=== PATIENT | female | born 1980 | race Caucasian/White ===

== ENCOUNTER 2017-11-24 07:29 | Emergency (ER) | payer SELFPAY ==
--- NOTE | 2017-11-24 08:12 | EDPHYS ---
Physician Documentation [facility] Name: Jose Rand Age: 37 yrs Sex: Female : 1980 Arrival Date: 11/24/2017 Time: 07:31 Bed 19 Private MD: ED Physician Bull Zarate HPI: 11/24 08:05 This 37 yrs old Female presents to ER via Ambulatory with complaints of nga Abdominal Problem. 08:05 The patient presents with abdominal pain in the lower abdomen. Onset: The nga symptoms/episode began/occurred 2 day(s) ago. The patient presents with pelvic pain, that is located in/on the suprapubic area, right lower quadrant and left lower quadrant. Onset: The symptoms/episode began/occurred 2 day(s) ago. Modifying factors: The symptoms are alleviated by remaining still, the symptoms are aggravated by sexual intercourse. Associated signs and symptoms: The patient has no apparent associated signs or symptoms. Severity of symptoms: At their worst the symptoms were mild, in the emergency department the symptoms are unchanged. 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 - Social history:: Smoking status: Patient uses tobacco products, smokes one pack cigarettes per day. - Family history:: not pertinent. ROS: 08:05 Constitutional: Negative for fever, chills, and weight loss, Eyes: Negative for injury, nga pain, redness, and discharge, ENT: Negative for injury, pain, and discharge, Neck: Negative for injury, pain, and swelling, Cardiovascular: Negative for chest pain, palpitations, and edema, Respiratory: Negative for shortness of breath, cough, wheezing, and pleuritic chest pain, Back: Negative for injury and pain, : Negative for injury, bleeding, discharge, and swelling, MS/Extremity: Negative for injury and deformity, Skin: Negative for injury, rash, and discoloration, Neuro: Negative for headache, weakness, numbness, tingling, and seizure, Psych: Negative for depression, anxiety, suicide ideation, homicidal ideation, and hallucinations, Allergy/Immunology: Negative for hives, rash, and allergies, Endocrine: Negative for neck swelling, polydipsia, polyuria, polyphagia, and marked weight changes, Hematologic/Lymphatic: Negative for swollen nodes, abnormal bleeding, and unusual bruising. 08:05 Abdomen/GI: Positive for abdominal pain, of the suprapubic area, at base of incision, suture location. Exam: 08:05 Constitutional: This is a well developed, well nourished patient who is awake, alert, nga and in no acute distress. Head/Face: Normocephalic, atraumatic. Eyes: Pupils equal round and reactive to light, extra-ocular motions intact. Lids and lashes normal. Conjunctiva and sclera are non-icteric and not injected. Cornea within normal limits. Periorbital areas with no swelling, redness, or edema. ENT: Nares patent. No nasal discharge, no septal abnormalities noted. Tympanic membranes are normal and external auditory canals are clear. Oropharynx with no redness, swelling, or masses, exudates, or evidence of obstruction, uvula midline. Mucous membranes moist. Neck: Trachea midline, no thyromegaly or masses palpated, and no cervical lymphadenopathy. Supple, full range of motion without nuchal rigidity, or vertebral point tenderness. No Meningismus. Chest/axilla: Normal chest wall appearance and motion. Nontender with no deformity. No lesions are appreciated. Cardiovascular: Regular rate and rhythm with a normal S1 and S2. No gallops, murmurs, or rubs. Normal PMI, no JVD. No pulse deficits. Respiratory: Lungs have equal breath sounds bilaterally, clear to auscultation and percussion. No rales, rhonchi or wheezes noted. No increased work of breathing, no retractions or nasal flaring. Back: No spinal tenderness. No costovertebral tenderness. Full range of motion. Female : Normal external genitalia. Skin: Warm, dry with normal turgor. Normal color with no rashes, no lesions, and no evidence of cellulitis. MS/ Extremity: Pulses equal, no cyanosis. Neurovascular intact. Full, normal range of motion. Neuro: Awake and alert, GCS 15, oriented to person, place, time, and situation. Cranial nerves II-XII grossly intact. Motor strength 5/5 in all extremities. Sensory grossly intact. Cerebellar exam normal. Normal gait. Psych: Awake, alert, with orientation to person, place and time. Behavior, mood, and affect are within normal limits. 08:05 Abdomen/GI: Inspection: abdomen appears normal, Bowel sounds: normal, Palpation: nontender, Liver: no appreciated palpable abnormalities, Hernia: not appreciated. Vital Signs: 07:41 BP 133 / 94; Pulse 91; Resp 14; Temp 97.0; Pulse Ox 98% ; Weight 44.91 kg; Height 5 ft. ph 3 in. (160.02 cm); 07:41 Body Mass Index 17.54 (44.91 kg, 160.02 cm) ph MDM: 07:42 Patient medically screened. [facility] 08:05 Data reviewed: vital signs, nurses notes, lab test result(s), urinalysis, UPT: negative.[facility] 11/24 07:51 Order name: Urine Dipstick--Ancillary (enter results) bd Administered Medications: No medications were administered Disposition: 11/24/17 08:11 Discharged to Home. Impression: Dyspareunia. - Condition is Stable. - Discharge Instructions: Dyspareunia. - Prescriptions for Bentyl 20 mg Oral Tablet - take 1 tablet by ORAL route every 6 hours As needed; 20 tablet. Protonix 40 mg Oral Tablet - take 1 tablet by ORAL route once daily; 30 tablet. - Medication Reconciliation Form, Thank You Letter, Antibiotic Education, Prescription Opioid Use form. - Follow up: Private Physician; When: 2 - 3 days; Reason: Recheck today's complaints, Continuance of care, Re-evaluation by your physician. Follow up: Althea Bird MD; When: 2 - 3 days; Reason: Recheck today's complaints, Re-evaluation by your physician. - Problem is new. - Symptoms have improved. Signatures: Dispatcher [employer] Kiah Singh, ANKUR RN Bull Oleary MD MD cha Hall, Patricia RN RN ph Corrections: (The following items were deleted from the chart) 08:24 08:11 11/24/2017 08:11 Discharged to Home. Impression: Dyspareunia. Condition is ch Stable. Forms are Medication Reconciliation Form, Thank You Letter, Antibiotic Education, Prescription Opioid Use. Follow up: Private Physician; When: 2 - 3 days; Reason: Recheck today's complaints, Continuance of care, Re-evaluation by your physician. Follow up: Althea Bird; When: 2 - 3 days; Reason: Recheck today's complaints, Re-evaluation by your physician. Problem is new. Symptoms have improved. nga
--- NOTE | 2017-11-24 08:12 | ER ---
Nurse's Notes [facility] Name: Jose Rand Age: 37 yrs Sex: Female : 1980 Arrival Date: 11/24/2017 Time: 07:31 Bed 19 Private MD: Diagnosis: Dyspareunia Presentation: 11/24 07:37 Presenting complaint: Patient states: " I had stomach surgery 1 year ago and I've been ph noticing this weird bump under my scar. It hurts mainly when I have sex." Small nodule palpated in pt's lower abdomen near surgical site. Denies fever or other symptoms. Transition of care: patient was not received from another setting of care. Onset of symptoms was November 24, 2017. Initial Sepsis Screen: Does the patient meet any 2 criteria? No. Patient's initial sepsis screen is negative. Does the patient have a suspected source of infection? No. Patient's initial sepsis screen is negative. Care prior to arrival: None. 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 - Social history:: Smoking status: Patient uses tobacco products, smokes one pack cigarettes per day. - Family history:: not pertinent. Screenin:54 Abuse screen: Denies threats or abuse. Denies injuries from another. Nutritional ch screening: No deficits noted. Tuberculosis screening: No symptoms or risk factors identified. Fall Risk None identified. Assessment: 07:54 General: Appears in no apparent distress. comfortable, Behavior is calm, cooperative, ch appropriate for age. Pain: Complains of pain in abdomen Pain currently is 0 out of 10 on a pain scale. at worst was 6 out of 10 on a pain scale. Pain began gradually. Neuro: Level of Consciousness is awake, alert, obeys commands, Oriented to person, place, time, situation, Publication Director are equal bilaterally Moves all extremities. Full function Gait is steady, Speech is normal, Facial symmetry appears normal, Facial symmetry: tongue is midline, Pupils are PERRLA. Respiratory: Airway is patent Respiratory effort is even, unlabored, Breath sounds are clear bilaterally. GI: Bowel sounds present X 4 quads. Abd is soft and non tender X 4 quads. pt has small nodule under scar on abdominal wall, firm. pt states it hurts with intercourse. : No signs and/or symptoms were reported regarding the genitourinary system. Derm: Skin is pink, warm \\T\\ dry. Vital Signs: 07:41 BP 133 / 94; Pulse 91; Resp 14; Temp 97.0; Pulse Ox 98% ; Weight 44.91 kg; Height 5 ft. ph 3 in. (160.02 cm); 07:41 Body Mass Index 17.54 (44.91 kg, 160.02 cm) ph ED Course: 07:31 Patient arrived in ED. as 07:40 Triage completed. ph 07:41 Arm band placed on. ph 07:42 Bull Zarate MD is Attending Physician. [facility] [place] 07:54 Kiah Capellan, ANKUR is Primary Nurse. 07:54 No apparent distress. Resting quietly. ch 07:54 Patient has correct armband on for positive identification. Bed in low position. Call light in reach. Side rails up X 1. Adult w/ patient. Warm blanket given. 07:54 No provider procedures requiring assistance completed. ch 08:10 Althea Bird MD is Referral Physician. nga 08:24 Patient did not have IV access during this emergency room visit. Administered Medications: No medications were administered Outcome: 08:11 Discharge ordered by . [facility] [place] 08:23 Discharged to home ambulatory, with family. 08:23 Condition: improved 08:23 Discharge instructions given to patient, family, Instructed on discharge instructions, follow up and referral plans. medication usage, Demonstrated understanding of instructions, follow-up care, medications, Prescriptions given X 2. 08:24 Patient left the ED. Signatures: Kiah Capellan, RN RN Bull Oleary MD MD cha Martinez, Amelia as Hall, Patricia, RN RN
[2017-11-24 08:28] VITALS: BP 133/94; TEMP 97; O2SAT 98
[2017-11-24 09:48] LABS: Urine Blood TRACE (NEG); Urine Glucose NEGATIVE (NEG); Urine Protein NEGATIVE (NEG); Urine Specific Gravity 1.015 (1.005-1.030)
== END 2017-11-24 08:24 | disposition home or self-care (01) ==
LOC: ER 07:29
DX: N94.10 Unspecified dyspareunia (principal); I25.2 Old myocardial infarction; F17.210 Nicotine dependence, cigarettes, uncomplicated
CPT/HCPCS: 81003; 99282

== ENCOUNTER 2021-08-22 19:08 | Emergency (ER) | payer OTHER, SELFPAY ==
--- OUTSIDE RECORDS SUMMARY | 2021-08-22 19:12 | XMS REPORT | Continuity of Care Document ---
:[address] [facility] t Address [address] [place] [address] Care Team Providers Name Role Phone PCP, DOES NOT HAVE A Primary Care Physician Unavailable Anthony CLINE Attending Clinician TONYA R Attending Clinician Unavailable Afua ARZOLA, S Attending Clinician Tonya RODRIGUES R Attending Clinician Singer WILEY Attending Clinician TONYA R Admitting Clinician Unavailable Tonya RODRIGUES R Admitting Clinician Payers Payer Name Policy Type Policy Number Effective Date Expiration Date S [place] MEDICAID PENDING PENDING 2021 2021 00:00:00 00:00:00 Problems Condition Condition Condition Status Onset Resolution Last Treating Co mments Source Name Details Category Date Date Treatment Clinician Date Oral Oral Disease Active Univers abscess abscess 08-05 ity of 00:00: [address] No known No known Disease Unive rs active active ity of problems problems [facility] Allergies, Adverse Reactions, Alerts Allergy Allergy Status Severity Reaction(s) Onset Inactive Treating Comm ents Source Name Type Date Date Clinician NO KNOWN Drug Active Univers ALLERGIE Class ity of S [facility] Social History Social Habit Start Date Stop Date Quantity Comments Source Exposure to Not sure University SARS-CoV-2 (event) [facility] Alcohol intake 2021-08-04 2021-08-04 Current University 00:00:00 00:00:00 non-drinker of [facility] alcohol Branch (finding) Cigarettes smoked 2015-07-26 2015-07-26 Univers ity of current (pack per 00:00:00 00:00:00 [facility] ) - Reported Branch Cigarette 2015-07-26 2015-07-26 University of pack-years 00:00:00 00:00:00 [facility] Tobacco use and 2015-07-26 2015-07-26 Never used Universit y of exposure 00:00:00 00:00:00 [facility] Sex [birth year] At [birth year] Universit y of 00:00:00 00:00:00 [facility] Smoking Status Start Date Stop Date Source Current every day smoker 2015-07-26 00:00:00 Uni versity of [facility] Medications Ordered Filled Start Stop Current Ordering Indication Dosage Frequency Signature Comments Components Source Medication Medication Date Date Medication? Clinician (SIG) Name Name lactated Yes 500mL at 42 Univers ringers IV 1-24 mL/hr, 500 ity of infusion 15:15: mL, IV [place] 500 mL 00 Infusion, Medical CONTINUOUS Branch , Starting on Thu08/05/21 at 0915, Until Discontinu ed, Routine, PACU lactated 2021- No 500mL at 42 Univer s ringers IV -24 01-25 mL/hr, 500 it y of infusion 15:15: 09:37 mL, IV [place] 500 mL 00 :49 Infusion, Medical CONTINUOUS Branch , Starting on Thu08/05/21 at 0915, Until Tu08/06/21 at 0337, Routine, PACU sennosides- Yes 1{tbl} 1 tablet, Univers docusate -24 Oral, ity of sodium 15:00: DAILY, [place] (SENOKOT-S) 00 First dose Me dical 8.6-50 mg on Mon Branch per tablet 08/05/21 at 1 tablet 0900, Until Discontinu ed, Routine sennosides- 0 2022- No 1{tbl} 1 tablet, Univers docusate -05 08-25 Oral, ity of sodium 15:00: 09:37 DAILY, [place] (SENOKOT-S) 00 :49 First dose Me dical 8.6-50 mg on Mon Branch per tablet 08/05/21 at 1 tablet 0900, Until Discontinu ed, Routine chlorhexidi Yes 15mL 15 mL, Univ ers ne 08-05 Oral ity of (PERIDEX) 14:00: ([place] 0.12 % 00 Spit Out), Medical mouthwash BID, First Bran ch 15 mL dose on Thu08/05/21 at 0800, Until Discontinu ed, Routine chlorhexidi 2021- No 15mL 15 mL, Uni vers ne 08-05 Oral ity of (PERIDEX) 14:00: 09:37 ([place] 0.12 % 00 :49 Spit Out), Medical mouthwash BID, First Bran ch 15 mL dose on Thu08/05/21 at 0800, Until Discontinu ed, Routine bupivacaine 2021- No PRN, Unive rs (preserv 08-05 Starting ity of free) 0.5% 13:55: 15:32 on Thu [place] (SENSORCAIN 00 :30 08/05/21 at Ia dicmd E MP) 0.5 0755, Branch % (5 mg/mL) Until Thu injection 08/05/21 at 0932, Routine, Intra-op lidocaine No PRN, Univers 2% - 08-05 Starting ity of epinephrine 13:38: 15:32 on Thu [place] 1:100,000 00 :30 08/05/21 at [facility] livan syringe 0738, Branch Until Thu08/05/21 at 0932, Routine, Intra-op lactated Yes 1000mL at 42 Univer s ringers IV -24 mL/hr, ity of infusion 06:30: 1,000 mL, [place] 1,000 mL 00 IV Medical Infusion, Branch CONTINUOUS , Starting on Thu08/05/21 at 0030, Until Discontinu ed, Routine lactated 2021- No 1000mL at 42 Unive rs ringers IV 08-05- mL/hr, ity of infusion 06:30: 09:37 1,000 mL, [place] 1,000 mL 00 :49 IV Medical Infusion, Branch CONTINUOUS , Starting on Thu08/05/21 at 0030, Until Thu08/06/21 at 0337, Routine naloxone Yes .1mg 0.1 mg, Univer s (NARCAN) 08-05 Slow IV ity of injection 06:25: Push, PRN [place] 0.1 mg 21 - [facility], Starting on Thu08/05/21 at 0025, Until Discontinu ed, Routine, Sedation/R espiratory Depression , See admin instructio ns. morpHINE 2021- Yes 2mg 2 mg, Slow Un varinder injection 2 08-05 IV Push, ity of mg 06:25: 06:24 Q3HPRN, [place] 21 :21 Starting Medical on Thu08/05/21 at 0025, Until Thu08/07/21 at 0024, Routine, Pain (scale 7-10) naloxone 2021- No .1mg 0.1 mg, Unive rs (NARCAN) 08-05 Slow IV ity of injection 06:25: 09:37 Push, PRN [place] 0.1 mg 21 :49 - SEE [facility] NS, Starting on Thu08/05/21 at 0025, Until Thu08/06/21 at 0337, Routine, Sedation/R espiratory Depression , See admin instructio ns. morpHINE 2021- No 2mg 2 mg, Slow Un varinder injection 2 08-05 IV Push, ity of mg 06:25: 09:37 Q3HPRN, [place] 21 :49 Starting Medical on Thu08/05/21 at 0025, Until Thu08/06/21 at 0337, Routine, Pain (scale 7-10) HYDROcodone Yes 1{tbl} 1 tablet, Univers -acetaminop 08-05 Oral, ity of hen (NORCO 06:25: Q6HPRN, [place] 5) 5-325 mg 18 Starting Medi livan tablet 1 on Thu [place] tablet 08/05/21 at 0025, Until Discontinu ed, Routine, Pain (scale 4-6) HYDROcodone 2021- No 1{tbl} 1 tablet, Univers -acetaminop 08-05 Oral, ity of hen (NORCO 06:25: 09:37 Q6HPRN, [place] 5) 5-325 mg 18 :49 Starting Medi livan tablet 1 on Mon Branch tablet 08/05/21 at 0025, Until 08/06/21 at 0337, Routine, Pain (scale 4-6) ibuprofen 2021-0 Yes 600mg 600 mg, Univ ers (ADVIL 1-24 Oral, ity of CHILDREN'S) 06:25: Q6HPRN, [place] 100 mg/5 mL 13 Starting Medi livan oral on Mon Branch suspension 08/05/21 at 600 mg 0025, Until Discontinu ed, Routine, Pain (scale 1-3) ibuprofen 2021-0 202- No 600mg 600 mg, Uni vers (ADVIL 1-25 Oral, ity of CHILDREN'S) 06:25: 09:37 Q6HPRN, [place] 100 mg/5 mL 13 :49 Starting Medi livan oral on Mon Branch suspension 08/05/21 at 600 mg 0025, Until Thu08/06/21 at 0337, Routine, Pain (scale 1-3) ondansetron Yes 4mg 4 mg, Slow Univers (ZOFRAN 1-24 IV Push, ity of (PF)) 06:25: Q4HPRN, [place] injection 4 10 Starting Medi livan mg on Mon Branch 08/05/21 at 0025, Until Discontinu ed, Routine, Nausea and Vomiting (N/V) ondansetron 0 2021- No 4mg 4 mg, Slow Univers (ZOFRAN 1-24 -25 IV Push, ity of (PF)) 06:25: 09:37 Q4HPRN, [place] injection 4 10 :49 Starting Medi livan mg on Mon Branch 08/05/21 at 0025, Until Tu08/06/21 at 0337, Routine, Nausea and Vomiting (N/V) nicotine 2021-0 Yes 1{patch 1 Patch, Un varinder (NICODERM) 08-05 } Topical, ity o f 7 mg/24 hr 02:15: Administer [place] patch 1 00 over 24 Medical Patch Hours, Branch Q24H, First dose on 08/04/21 at 2015, Until Discontinu ed, Routine nicotine 2021-0 202- No 1{patch 1 Patch, U nivers (NICODERM) 08-05 } Topical, ity of 7 mg/24 hr 02:15: 09:37 Administer [place] patch 1 00 :49 over 24 Medical Patch Hours, Branch Q24H, First dose on 08/04/21 at 2015, Until Discontinu ed, Routine NaCl 0.9% No 1000mL at 100 Uni vers (NS) IV 08-05 mL/hr, IV ity of infusion 02:00: 06:26 Infusion, [place] 1,000 mL 00 :53 CONTINUOUS Medic al , Starting Branch on 08/04/21 at 2000, Until 08/05/21 at 0026, Routine clindamycin No 900mg 900 mg, IV Univers in 5 % 08-05 Piggyback, ity of dextrose 02:00: 01:38 ONCE, 1 [place] (CLEOCIN) 00 :00 dose, On Medica l 900 mg/50 [place] Branch mL IV 08/04/21 at piggyback 2000, RTU 900 mg Administer over 30 Minutes, 50 mL
R shanice for Anti-Infec tive: Documented Infection< br>Documen vicky Infection Site: HEENT
D uration of Therapy: Other (see Comments)< br>Restric vicky use approved by: ADC PROVIDER naproxen No 500mg 500 mg, Univ ers (NAPROSYN) 08-05 Oral, ity of tablet 500 01:30: 00:35 ONCE, 1 [place] mg 00 :00 dose, On Medical [place] Branch 08/04/21 at 1930, Routine HYDROcodone 2021- No 1{tbl} 1 tablet, Univers -acetaminop 08-05 Oral, ity of hen (NORCO 01:30: 00:35 ONCE, 1 [place] 5) 5-325 mg 00 :00 dose, On Medi livan tablet 1 [facility] tablet 08/04/21 at 1930, HARDIK iopamidol 2021- No [id number] 100mL 100 mL, Univers (ISOVUE 08-05 Intravenou ity o f 370-500 mL) 00:45: 23:25 s, ONCE, 1 [place] injection 00 :00 dose, On Medica l 100 mL Sun Branch 08/04/21 at 1845, Routine chlorhexidi 0 Yes [id number] 15mL Swish and Univers ne 0.12 % 1-24 spit out ity of mouthwash 00:00: 15 mL 2 [place] 00 (two) Medical times Branch daily. ibuprofen 0 Yes [id number] 600mg Take 1 U nivers 600 mg 1-24 tablet by ity of tablet 00:00: mouth [place] 00 every 6 Medical (six) Branch hours as needed for Pain (scale 1-3). chlorhexidi 0 Yes [id number] 15mL Swish and Univers ne 0.12 % 1-24 spit out ity of mouthwash 00:00: 15 mL 2 [place] 00 (two) Medical times Branch daily. ibuprofen 0 Yes [id number] 600mg Take 1 U nivers 600 mg 1-24 tablet by ity of tablet 00:00: mouth [place] 00 every 6 Medical (six) Branch hours as needed for Pain (scale 1-3). chlorhexidi 0 Yes [id number] 15mL Swish and Univers ne 0.12 % 1-24 spit out ity of mouthwash 00:00: 15 mL 2 [place] 00 (two) Medical times Branch daily. ibuprofen 0 Yes [id number] 600mg Take 1 U nivers 600 mg 1-24 tablet by ity of tablet 00:00: mouth [place] 00 every 6 Medical (six) Branch hours as needed for Pain (scale 1-3). HYDROcodone 2021- Yes [id number] 1{tbl} Take 1 U nivers -acetaminop 08-05 tablet by it y of hen 5-325 00:00: 05:59 mouth [place] mg tablet 00 :00 every 6 Medical (six) Branch hours as needed for Pain (scale 4-6) or Pain (scale 7-10) for up to 7 days. Indication s: acute pain amoxicillin 2021-2021- Yes [id number] 1{tbl} Take 1 Univers -clavulanat -08-13 tablet by it y of e 00:00: 05:59 mouth 2 [place] (AUGMENTIN) 00 :00 (two) Medical 875-125 mg times Branch per tablet daily for 7 days. HYDROcodone 2021- Yes [id number] 1{tbl} Take 1 U nivers -acetaminop 08-05 tablet by it y of hen 5-325 00:00: 05:59 mouth [place] mg tablet 00 :00 every 6 Medical (six) Branch hours as needed for Pain (scale 4-6) or Pain (scale 7-10) for up to 7 days. Indication s: acute pain amoxicillin 2021- Yes [id number] 1{tbl} Take 1 Univers -clavulanat 08-05 tablet by it y of e 00:00: 05:59 mouth 2 [place] (AUGMENTIN) 00 :00 (two) Medical 875-125 mg times Branch per tablet daily for 7 days. HYDROcodone 2021- Yes [id number] 1{tbl} Take 1 U nivers -acetaminop 08-05 tablet by it y of hen 5-325 00:00: 05:59 mouth [place] mg tablet 00 :00 every 6 Medical (six) Branch hours as needed for Pain (scale 4-6) or Pain (scale 7-10) for up to 7 days. Indication s: acute pain amoxicillin 2021- Yes [id number] 1{tbl} Take 1 Univers -clavulanat 08-05 tablet by it y of e 00:00: 05:59 mouth 2 [place] (AUGMENTIN) 00 :00 (two) Medical 875-125 mg times Branch per tablet daily for 7 days. clindamycin 2019-07- No 600mg 600 mg, IV Univers in 5 % 09-08- Piggyback, ity of dextrose 12:45: 12:10 ONCE, 1 [place] (CLEOCIN) 00 :00 dose, Sun Medic al 600 mg/50 07/08/ Branch mL IV at 0645, piggyback 50 RTU 600 mg mL
Reas on for Anti-Infec tive: Empiric Therapy for Suspected Infection< br>Empiric Therapy Site: Skin / Soft tissue
Duration of therapy: 72 hours
R estricted use approved by: ADC PROVIDER NaCl 0.9% 2019-07- No 500mL at 999 [facility] ers (NS) bolus 09-08 12-27 mL/hr, 500 it y of infusion 12:30: 12:20 mL, IV [place] 500 mL 00 :00 Piggyback, Medical ONCE, 1 Branch dose, 07/08/20 at 0630, STAT clindamycin 2019-07- No [id number] 300mg Take 2 Univers 150 mg 09-08 [id number] capsules ity of capsule 00:00: 05:59 by mouth 4 [place] as 00 :00 (four) Medical times Branch daily for 7 days. ondansetron 2018-0 Yes 4mg Take 1 Univ ers (ZOFRAN 5-20 tablet by ity of ODT) 4 mg 00:00: mouth [place] disintegrat 00 every 8 Medic al ing tablet (eight) Branch hours as needed for Nausea and Vomiting (N/V). traMADOL 50 2018-0 Yes 50mg Take 1 Univ ers mg tablet 5-20 tablet by ity o f 00:00: mouth [place] 00 every 6 Medical (six) Branch hours as needed for Pain (scale 7-10). ondansetron 2018-0 Yes 4mg Take 1 Univ ers (ZOFRAN 5-20 tablet by ity of ODT) 4 mg 00:00: mouth [place] disintegrat 00 every 8 Medic al ing tablet (eight) Branch hours as needed for Nausea and Vomiting (N/V). traMADOL 50 2018-0 Yes 50mg Take 1 Univ ers mg tablet 5-20 tablet by ity o f 00:00: mouth [place] 00 every 6 Medical (six) Branch hours as needed for Pain (scale 7-10). ondansetron 2018-0 Yes 4mg Take 1 Univ ers (ZOFRAN 5-20 tablet by ity of ODT) 4 mg 00:00: mouth [place] disintegrat 00 every 8 Medic al ing tablet (eight) Branch hours as needed for Nausea and Vomiting (N/V). traMADOL 50 2018-0 Yes 50mg Take 1 Univ ers mg tablet 5-20 tablet by ity o f 00:00: mouth [place] 00 every 6 Medical (six) Branch hours as needed for Pain (scale 7-10). ondansetron 2018-0 Yes 4mg Take 1 Univ ers (ZOFRAN 5-20 tablet by ity of ODT) 4 mg 00:00: mouth [place] disintegrat 00 every 8 Medic al ing tablet (eight) Branch hours as needed for Nausea and Vomiting (N/V). traMADOL 50 2018-0 Yes 50mg Take 1 Univ ers mg tablet 5-20 tablet by ity o f 00:00: mouth [place] 00 every 6 Medical (six) Branch hours as needed for Pain (scale 7-10). HYDROcodone Yes 1{tbl} Take 1-2 Univers -acetaminop 1-14 Tabs by ity o f hen (NORCO 00:00: mouth [place] 5) 5-325 mg 00 every 4 Medic al tablet (four) Branch hours as needed for Pain unrelieved by non-narcot ic analgesics . HYDROcodone 2021- No 1{tbl} Take 1-2 Univers -acetaminop 1-14 -24 Tabs by ity of hen (NORCO 00:00: 00:00 mouth [place] 5) 5-325 mg 00 :00 every 4 Medic al tablet (four) Branch hours as needed for Pain unrelieved by non-narcot ic analgesics . HYDROcodone 2021- No 1{tbl} Take 1-2 Univers -acetaminop 1-14 - Tabs by ity of hen (NORCO 00:00: 00:00 mouth [place] 5) 5-325 mg 00 :00 every 4 Medic al tablet (four) Branch hours as needed for Pain unrelieved by non-narcot ic analgesics . Vital Signs Vital Name Observation Time Observation Value Comments Source Systolic blood 2021-08-05 21:25:00 118 mm[Hg] Univer [facility] Diastolic blood 2021-08-05 21:25:00 72 mm[Hg] [facility] Heart rate 2021-08-05 21:25:00 93 /min [facility] Body temperature 2021-08-05 21:25:00 36.11 Bharati [facility] Oxygen saturation in 2021-08-05 21:25:00 98 /min [facility] Arterial blood by [facility] Pulse oximetry Branch Respiratory rate 2021-08-05 15:11:00 11 /min [facility] Body height 2021-08-05 05:31:[address] [facility] Body weight 2021-08-05 05:31:[address] [facility] BMI 2021-08-05 05:31:00 18.29 kg/m2 [facility] [place] [facility] Systolic blood 2021-08-05 14:30:00 135 mm[Hg] Univer sity of pressure [place] [facility] Diastolic blood 2021-08-05 14:30:00 107 mm[Hg] Unive rsity of pressure [place] [facility] Heart rate 2021-08-05 14:30:00 103 /min [facility] [place] [facility] Respiratory rate 2021-08-05 14:30:00 16 /min Univ ersity [facility] [place] [facility] Oxygen saturation in 2021-08-05 14:30:00 100 /min University of Arterial blood by [facility] livan Pulse oximetry Branch Body temperature 2021-08-05 14:05:00 36.17 Bharati Univ ersity of [place] [facility] Body height 2021-08-05 05:31:00 157.5 cm [facility] [place] [facility] [place] Body weight 2021-08-05 05:31:00 45.36 kg [facility] [place] [facility] BMI 2021-08-05 05:31:00 18.29 kg/m2 [facility] [place] [facility] Systolic blood 2020-07-08 12:00:00 161 mm[Hg] Univer sity of pressure [place] [facility] Diastolic blood 2020-07-08 12:00:00 103 mm[Hg] Unive rsity of pressure [place] [facility] Heart rate 2020-07-08 12:00:00 105 /min [facility] [place] [facility] Respiratory rate 2020-07-08 12:00:00 22 /min Univ ersity [facility] [place] [facility] Oxygen saturation in 2020-07-08 11:30:00 98 /min University of Arterial blood by [facility] livan Pulse oximetry Branch Body temperature 2020-07-08 10:11:30 36.78 Bharati [facility] [place] [facility] Body height 2020-07-08 10:10:00 157.5 cm [facility] [place] [facility] Body weight 2020-07-08 10:10:00 44.453 kg [facility] [place] [facility] BMI 2020-07-08 10:10:00 17.92 kg/m2 [facility] [place] [facility] Procedures Procedure Date / Time Performing Clinician Source Performed ASPIRATE OR ABSCESS 2021-08-05 13:47:00 [facility] CULTURE(AEROBIC/ANAEROBIC Medica l Branch ) AFB CULTURE 2021-08-05 13:47:00 Antione Castaneda [facility] ASPIRATE OR ABSCESS 2021-08-05 13:47:00 Antione Castaneda [facility] CULTURE(AEROBIC/ANAEROBIC Medica l Branch ) INCISION AND DRAINAGE 2021-08-05 13:14:00 Antione Castaneda [facility] ORAL CAVITY [facility] TOOTH EXTRACTION 2021-08-05 13:14:[address] [facility] PROTHROMBIN TIME / INR 2021-08-05 10:17:00 [facility] [place] [facility] ACTIVATED PARTIAL 2021-08-05 10:17:00 [facility] PROTHROMBIN TIME / INR 2021-08-05 10:17:00 [facility] [place] [facility] ACTIVATED PARTIAL 2021-08-05 10:17:00 [facility] XR ORTHOPANTOGRAM TEETH 2021-08-05 07:25:00 [facility] XR ORTHOPANTOGRAM TEETH 2021-08-05 07:25:00 [facility] COMP. METABOLIC PANEL 2021-08-05 01:00:00 Rohini Caal [facility] ([id number]) Medical Branch CBC WITH DIFF 2021-08-05 01:00:00 [facility] COMP. METABOLIC PANEL 2021-08-05 01:00:00 Rohini Caal [facility] ([id number]) Medical Branch CBC WITH DIFF 2021-08-05 01:00:00 [facility] LAB ONLY COVID 2021-08-05 00:41:00 Rohini Caal [facility] COVID-19 (ID NOW RAPID 2021-08-05 00:41:00 Rohini Caal [facility] TESTING) Medical Branch LAB ONLY COVID 2021-08-05 00:41:00 Rohini Caal [facility] INTERPRETATION Medical Branch COVID-19 (ID NOW RAPID 2021-08-05 00:41:00 Rohini Caal [facility] TESTING) Medical Branch CT MAXILLOFACIAL/MANDIBLE 2021-08-04 23:32:08 [facility] MAXILLOFACIAL/MANDIBLE 2021-08-04 23:32:08 [facility] [place] [facility] NOTICE OF PRIVACY 2021-08-04 18:44:27 Doctor Unassigned, [facility] [place] [facility] [place] NOTICE OF PRIVACY 2021-08-04 18:44:27 Doctor Unassigned, [facility] [place] [facility] [place] CONSENT/REFUSAL FOR 2021-08-04 18:44:14 [facility] DIAGNOSIS AND TREATMENT [place] [facility] [place] CONSENT/REFUSAL FOR 2021-08-04 18:44:14 [facility] DIAGNOSIS AND TREATMENT [place] [facility] [place] HOSPITAL ADMISSION 2021-08-04 06:01:00 [facility] Name Medical [place] COMP. METABOLIC PANEL 2020-07-08 10:36:00 [facility] ([id number]) Medical [place] CBC WITH DIFF 2020-07-08 10:36:00 [facility] En[facility] Start End Encounter Admission Attending Care Care Encounter Source Date/Time Date/Time Type Type Clinicians Facility Department ID 2021-08-06 2021-08-06 Transition JULI Cruz [id number] Univers 00:00:00 00:00:00 of Care Loreta SMITH [id number] ity of [place]2.686 [place] [id number] [place] [id number] Branch 2021-08-04 2021-08-05 Inpatient X [facility] [id number] Univers 12:52:00 18:40:00 ANTIONE [facility] Medical [place] 2021-08-04 2021-08-05 Hospital Rohini Caal [id number] Univers 12:52:00 18:40:00 Encounter Antione Castaneda [id number]. 10 ity [facility] 4.2.7.2.686 [place] [id number] [facility] 091 [place] 2021-08-05 2021-08-05 Surgery LUC Castaneda [id number] Univers 07:15:00 08:36:00 Antione MALCOLM [id number] it [facility] [id number] [place] [id number] [facility] 103 Branch 2020-07-08 2020-07-08 [facility] [id number] Univers 04:13:00 06:21:00 Levon Tavares [id number] i ty [facility] 4[place].2.686 [place] [id number] [facility] 084 Branch 2020-07-08 2020-07-08 Emergency X [facility] ERT [id number] Univers 04:05:00 04:05:00 [facility] Results Test Description Test Time Test Comments Results Result Comments Source aPTT 2021-08-05 10:36:53 Test Item Value Reference Range Interpretation Comme nts APTT Patient (test code = See_Comment [ Automated message] The system 3173-2) which generated this result transmitted ref erence range: 26 - 36 Seconds. The reference range was not used to interpret this result as camilo l/abnormal. Lab Interpretation (test code = Normal 07063-2) [facility] / [id number] 10:36:53 Test Item Value Reference Range Interpretation Comments PROTIME PATIENT (test See_Comment [Auto mated message] code = 5964-2) The system wh ich generated this result transmitted ref erence range: 10.1 - 1 2.6 Seconds. The re ference range was not u sed to interpret this result as normal/abnor mal. INR (test code = 6301-6) Nor mal INR <1.1; Warfarin Therap eutic range 2.0 to 3. 0 or 2.5 to 3.5, dep ending upon the indica tions. Lab Interpretation (test Normal code = 98889-9) [facility] 10:36:53 Test Item Value Reference Range Interpretation Comments APTT Patient (test code = See_Comment [ Automated message] 3173-2) The system whic h generated this result transmitted ref erence range: 26 - 36 Seconds. The re ference range was not u sed to interpret this result as normal/abnor mal. Lab Interpretation (test Normal code = 58028-4) [facility] Time / [id number] 10:36:53 Test Item Value Reference Range Interpretation Comments PROTIME PATIENT (test See_Comment [Auto mated message] code = 5964-2) The system wh ich generated this result transmitted ref erence range: 10.1 - 1 2.6 Seconds. The re ference range was not u sed to interpret this result as normal/abnor mal. INR (test code = 6301-6) Nor mal INR <1.1; Warfarin Therap eutic range 2.0 to 3. 0 or 2.5 to 3.5, dep ending upon the indica tions. Lab Interpretation (test Normal code = 86160-3) [facility] WITH [id number] 01:37:50 Test Item Value Reference Range Interpretation Comments WBC (test code = See_Comment H [Automated 5890-2) message] The system which generated this result transmit vicky reference range : 4.30 - 11.10 10*3/?L. The reference range was not used to interpret this result as normal/abnormal . RBC (test code = See_Comment [Automated 419-8) message] The system which generated this result transmit vicky reference range : 3.93 - 5.25 10*6/?L. The reference range was not used to interpret this result as normal/abnormal . HGB (test code = 12.9 g/dL 11.6-15.0 718-7) HCT (test code = 38.5 % 35.7-45.2 4544-3) MCV (test code = 86.3 fL 80.6-95.5 787-2) MCH (test code = 28.9 pg 25.9-32.8 785-6) MCHC (test code = 33.5 g/dL 31.6-35.1 786-4) RDW-SD (test code = 41.1 fL 39.0-49.9 92291-2) RDW-CV (test code = 13.1 % 12.0-15.5 788-0) PLT (test code = See_Comment [Automated 777-3) message] The system which generated this result transmit vicky reference range : 166 - 358 10*3/ ?L. The reference range was not u sed to interpret th is result as normal/abnormal . MPV (test code = 9.7 fL 9.5-12.9 83396-3) NRBC/100 WBC (test See_Comment [Automat ed code = 4842888510) message] The system which generated this result transmit vicky reference range : 0.0 - 10.0 /100 WBCs. The reference range was not used to interpret this result as normal/abnormal . NRBC x10^3 (test code <0.01 See_Comment [Auto mated = 3774822322) message] The system which generated this result transmit vicky reference range : 10*3/?L. The reference range was not used to interpret this result as normal/abnormal . GRAN MAT (NEUT) % 80.0 % (test code = 770-8) IMM GRAN % (test code 0.60 % = 4069868140) LYMPH % (test code = 10.6 % 736-9) MONO % (test code = 7.6 % 5905-5) EOS % (test code = 0.6 % 713-8) BASO % (test code = 0.6 % 706-2) GRAN MAT x10^3(ANC) 16.21 10*3/uL 1.88-7.09 H (test code = 0931323219) IMM GRAN x10^3 (test 0.13 10*3/uL 0.00-0.06 H code = 7433475669) LYMPH x10^3 (test code 2.16 10*3/uL 1.32-3.29 = 731-0) MONO x10^3 (test code 1.54 10*3/uL 0.33-0.92 H = 742-7) EOS x10^3 (test code = 0.13 10*3/uL 0.03-0.39 711-2) BASO x10^3 (test code 0.12 10*3/uL 0.01-0.07 H = 704-7) PLT ESTIMATE (test Normal Normal code = 9317-9) GIANT PLATELETS (test Present See_Comment A [Auto mated code = 5908-9) message] The system which generated this result transmit vicky reference range : (none). The reference range was not used to interpret this result as normal/abnormal . Lab Interpretation Abnormal (test code = 13333-2) [facility] WITH [id number] 01:37:50 Test Item Value Reference Range Interpretation Comments WBC (test code = See_Comment H [Automated 2590-2) message] The system which generated this result transmit vicky reference range : 4.30 - 11.10 10*3/?L. The reference range was not used to interpret this result as normal/abnormal . RBC (test code = See_Comment [Automated 789-8) message] The system which generated this result transmit vicky reference range : 3.93 - 5.25 10*6/?L. The reference range was not used to interpret this result as normal/abnormal . HGB (test code = 12.9 g/dL 11.6-15.0 718-7) HCT (test code = 38.5 % 35.7-45.2 4544-3) MCV (test code = 86.3 fL 80.6-95.5 787-2) MCH (test code = 28.9 pg 25.9-32.8 785-6) MCHC (test code = 33.5 g/dL 31.6-35.1 786-4) RDW-SD (test code = 41.1 fL 39.0-49.9 06279-0) RDW-CV (test code = 13.1 % 12.0-15.5 788-0) PLT (test code = See_Comment [Automated 777-3) message] The system which generated this result transmit vicky reference range : 166 - 358 10*3/ ?L. The reference range was not u sed to interpret th is result as normal/abnormal . MPV (test code = 9.7 fL 9.5-12.9 67601-4) NRBC/100 WBC (test See_Comment [Automat ed code = 8649390512) message] The system which generated this result transmit vicky reference range : 0.0 - 10.0 /100 WBCs. The reference range was not used to interpret this result as normal/abnormal . NRBC x10^3 (test code <0.01 See_Comment [Auto mated = 7665657114) message] The system which generated this result transmit vicky reference range : 10*3/?L. The reference range was not used to interpret this result as normal/abnormal . GRAN MAT (NEUT) % 80.0 % (test code = 770-8) IMM GRAN % (test code 0.60 % = 2007004187) LYMPH % (test code = 10.6 % 736-9) MONO % (test code = 7.6 % 5905-5) EOS % (test code = 0.6 % 713-8) BASO % (test code = 0.6 % 706-2) GRAN MAT x10^3(ANC) 16.21 10*3/uL 1.88-7.09 H (test code = 4876576020) IMM GRAN x10^3 (test 0.13 10*3/uL 0.00-0.06 H code = 2139238192) LYMPH x10^3 (test code 2.16 10*3/uL 1.32-3.29 = 731-0) MONO x10^3 (test code 1.54 10*3/uL 0.33-0.92 H = 742-7) EOS x10^3 (test code = 0.13 10*3/uL 0.03-0.39 711-2) BASO x10^3 (test code 0.12 10*3/uL 0.01-0.07 H = 704-7) PLT ESTIMATE (test Normal Normal code = 9317-9) GIANT PLATELETS (test Present See_Comment A [Auto mated code = 5908-9) message] The system which generated this result transmit vicky reference range : (none). The reference range was not used to interpret this result as normal/abnormal . Lab Interpretation Abnormal (test code = 89679-9) [facility]. METABOLIC PANEL ([id number])2021-08-05 01:23:23 Test Item Value Reference Range Interpretation Comments NA (test code = 131 mmol/L 135-145 L 1543179889) K (test code = 3.8 mmol/L 3.5-5.0 7973339561) CL (test code = 103 mmol/L 98-108 1921899223) CO2 TOTAL (test code = 23 mmol/L 23-31 1071171420) AGAP (test code = 2-16 1614734112) BUN (test code = 15 mg/dL 7-23 2828611502) GLUCOSE (test code = 109 mg/dL 70-110 9223920421) CREATININE (test code = 0.46 mg/dL 0.50-1.04 L 9473726147) TOTAL BILI (test code = 0.4 mg/dL 0.1-1.4 7801562866) CALCIUM (test code = 8.3 mg/dL 8.6-10.6 L 6267417234) T PROTEIN (test code = 7.7 g/dL 6.3-8.2 3180364743) ALBUMIN (test code = 4.2 g/dL 3.5-5.0 0872552545) ALK PHOS (test code = 89 U/L 34-122 3895110948) ALTv (test code = 15 U/L 5-35 1742-6) AST(SGOT) (test code = 32 U/L 13-40 2612879994) eGFR (test code = mL/min/1.73m2 7881686799) GERALDO (test code = GERALDO) Association of Glomerular Filtration Rate (GFR) and Staging of Kidney Disease* + --+ --+ ------+| GFR (mL/min/1.73 m2) ?| With Kidney Damage ?| ?Without Kidney Damage+ --------+ --------+ +| ?>90 ?| ?Stage one ?| ? Normal ?+ ---+ ---+ -------+| ?60-89 ?| ?Stage two ?| ? Decreased GFR ? + --+ --+ ------+| ?30-59 ?| ?Stage three ?| ? Stage three ? + --+ --+ ------+| ?15-29 ?| ?Stage four ? | ? Stage four ?+ ---+ ---+ -------+| ?<15 (or dialysis) ? ?| ?Stage five ? | ? Stage five ?+ ---+ ---+ -------+ *Each stage assumes the associated GFR level has been in effect for at least three months. ?Stages 1 to 5, with or without kidney disease, indicate chronic kidney disease. Notes: Determination of stages one and two (with eGFR >59mL/min/1.73 m2) requires estimation of kidney damage for at least three months as defined by structural or functional abnormalities of the kidney, manifested by either:Pathological abnormalities or Markers of kidney damage (including abnormalities in the composition of the blood or urine or abnormalities in imaging tests). Lab Interpretation Abnormal (test code = 24247-6) [facility]. METABOLIC PANEL ([id number])2021-08-05 01:23:23 Test Item Value Reference Range Interpretation Comments NA (test code = 131 mmol/L 135-145 L 4386430750) K (test code = 3.8 mmol/L 3.5-5.0 9767405615) CL (test code = 103 mmol/L 98-108 2177177554) CO2 TOTAL (test code = 23 mmol/L 23-31 2931082502) AGAP (test code = 2-16 8523269550) BUN (test code = 15 mg/dL 7-23 2282182783) GLUCOSE (test code = 109 mg/dL 70-110 1960845745) CREATININE (test code = 0.46 mg/dL 0.50-1.04 L 7840119977) TOTAL BILI (test code = 0.4 mg/dL 0.1-1.8 0876847936) CALCIUM (test code = 8.3 mg/dL 8.6-10.6 L 8888085568) T PROTEIN (test code = 7.7 g/dL 6.3-8.2 0425608945) ALBUMIN (test code = 4.2 g/dL 3.5-5.0 4528920857) ALK PHOS (test code = 89 U/L 34-122 3068313339) ALTv (test code = 15 U/L 5-35 1742-6) AST(SGOT) (test code = 32 U/L 13-40 3362348274) eGFR (test code = mL/min/1.73m2 8476991096) GERALDO (test code = GERALDO) Association of Glomerular Filtration Rate (GFR) and Staging of Kidney Disease* + --+ --+ ------+| GFR (mL/min/1.73 m2) ?| With Kidney Damage ?| ?Without Kidney Damage+ --------+ --------+ +| ?>90 ?| ?Stage one ?| ? Normal ?+ ---+ ---+ -------+| ?60-89 ?| ?Stage two ?| ? Decreased GFR ? + --+ --+ ------+| ?30-59 ?| ?Stage three ?| ? Stage three ? + --+ --+ ------+| ?15-29 ?| ?Stage four ? | ? Stage four ?+ ---+ ---+ -------+| ?<15 (or dialysis) ? ?| ?Stage five ? | ? Stage five ?+ ---+ ---+ -------+ *Each stage assumes the associated GFR level has been in effect for at least three months. ?Stages 1 to 5, with or without kidney disease, indicate chronic kidney disease. Notes: Determination of stages one and two (with eGFR >59mL/min/1.73 m2) requires estimation of kidney damage for at least three months as defined by structural or functional abnormalities of the kidney, manifested by either:Pathological abnormalities or Markers of kidney damage (including abnormalities in the composition of the blood or urine or abnormalities in imaging tests). Lab Interpretation Abnormal (test code = 02974-3) [facility] WITH [id number] 11:23:00 Test Item Value Reference Range Interpretation Comments WBC (test code = See_Comment H [Automated 5727-2) message] The system which generated this result transmit vicky reference range : 4.30 - 11.10 10*3/?L. The reference range was not used to interpret this result as normal/abnormal . RBC (test code = See_Comment L [Automated 389-8) message] The system which generated this result transmit vicky reference range : 3.93 - 5.25 10*6/?L. The reference range was not used to interpret this result as normal/abnormal . HGB (test code = 11.9 g/dL 11.6-15 718-7) HCT (test code = 35.4 % 35.7-45.2 L 4544-3) MCV (test code = 90.3 fL 80.6-95.5 787-2) MCH (test code = 30.4 pg 25.9-32.8 785-6) MCHC (test code = 33.6 g/dL 31.6-35.1 786-4) RDW-SD (test code = 44.1 fL 39-49.9 46607-2) RDW-CV (test code = 13.2 % 12-15.5 788-0) PLT (test code = See_Comment H [Automated 777-3) message] The system which generated this result transmit vicky reference range : 166 - 358 10*3/ ?L. The reference range was not u sed to interpret th is result as normal/abnormal . MPV (test code = 9.8 fL 9.5-12.9 66630-3) NRBC/100 WBC (test See_Comment [Automat ed code = 6619171424) message] The system which generated this result transmit vicky reference range : 0.0 - 10.0 /100 WBCs. The reference range was not used to interpret this result as normal/abnormal . NRBC x10^3 (test code <0.01 See_Comment [Auto mated = 0969577970) message] The system which generated this result transmit vicky reference range : 10*3/?L. The reference range was not used to interpret this result as normal/abnormal . GRAN MAT (NEUT) % 83.5 % (test code = 770-8) IMM GRAN % (test code 0.40 % = 0185699097) LYMPH % (test code = 8.6 % 736-9) MONO % (test code = 6.5 % 5905-5) EOS % (test code = 0.5 % 713-8) BASO % (test code = 0.5 % 706-2) GRAN MAT x10^3(ANC) 14.26 10*3/uL 1.88-7.09 H (test code = 8528447951) IMM GRAN x10^3 (test 0.06 10*3/uL 0-0.06 code = 5340611487) LYMPH x10^3 (test code 1.47 10*3/uL 1.32-3.29 = 731-0) MONO x10^3 (test code 1.11 10*3/uL 0.33-0.92 H = 742-7) EOS x10^3 (test code = 0.09 10*3/uL 0.03-0.39 711-2) BASO x10^3 (test code 0.09 10*3/uL 0.01-0.07 H = 704-7) Lab Interpretation Abnormal (test code = 11904-2) [facility]. METABOLIC PANEL ([id number])2020-07-08 11:10:00 Test Item Value Reference Range Interpretation Comments NA (test code = 137 mmol/L 135-145 2427670263) K (test code = 3.5 mmol/L 3.5-5 4844131654) CL (test code = 103 mmol/L 98-108 5617841082) CO2 TOTAL (test code = 25 mmol/L 23-31 2567951857) AGAP (test code = 2-16 4803334117) BUN (test code = 18 mg/dL 7-23 5062643476) GLUCOSE (test code = 95 mg/dL 70-110 3612453120) CREATININE (test code 0.52 mg/dL 0.5-1.04 = 0101149927) TOTAL BILI (test code 0.6 mg/dL 0.1-1.1 = 2156165761) CALCIUM (test code = 9.3 mg/dL 8.6-10.6 0999949287) T PROTEIN (test code = 7.6 g/dL 6.3-8.2 8641693394) ALBUMIN (test code = 4.2 g/dL 3.5-5 7769350609) ALK PHOS (test code = 77 U/L 34-122 8477936767) ALTv (test code = 13 U/L 5-35 1742-6) AST(SGOT) (test code = 27 U/L 13-40 0049888664) eGFR Calculation mL/min/1.73m2 (Non-) (test code = 1378045928) eGFR Calculation mL/min/1.73m2 () (test code = 6635436993) GERALDO (test code = GERALDO) Association of Glomerular Filtration Rate (GFR) and Staging of Kidney Disease* + -+ + ---+| GFR (mL/min/1.73 m2) ?| With Kidney Damage ?| ?Without Kidney Damage+ -------+ ------+ ---------+| ?>90 ?| ?Stage one ?| ? Normal ?+ --+ -+ ----+| ?60-89 ?| ?Stage two ?| ? Decreased GFR ? + -+ + ---+| ?30-59 ?| ?Stage three ?| ? Stage three ? + -+ + ---+| ?15-29 ?| ?Stage four ? | ? Stage four ?+ --+ -+ ----+| ?<15 (or dialysis) ? ?| ?Stage five ? | ? Stage five ?+ --+ -+ ----+ *Each stage assumes the associated GFR level has been in effect for at least three months. ?Stages 1 to 5, with or without kidney disease, indicate chronic kidney disease. Notes: Determination of stages one and two (with eGFR >59mL/min/1.73 m2) requires estimation of kidney damage for at least three months as defined by structural or functional abnormalities of the kidney, manifested by either:Pathological abnormalities or Markers of kidney damage (including abnormalities in the composition of the blood or urine or abnormalities in imaging tests). [facility]"
[2021-08-22 20:20] LABS: Urine Blood Negative (Negative); Urine Glucose Negative (Negative); Urine Protein Negative (Negative); Urine Specific Gravity >=1.030 (1.005-1.030)
[2021-08-22 20:32] LABS: Urine Specific Gravity/Preg >1.030 (1.005-1.030)
[2021-08-22] MEDS ORDERED: ONDANSETRON 4 MG/2 ML VIAL ONE ×2 (20:55→23:54)
[2021-08-22] MEDS ORDERED: MORPHINE 4 MG/ML SYR ONE ×2 (20:55→23:54)
[2021-08-22 21:05] LABS: Hematocrit 35.7 % (36.0-45.0); MPV 7.7 fL (7.6-11.3); RBC Red Blood Cell Count 4.03 M/uL (3.86-4.86)
[2021-08-22 21:47] LABS: ALT/SGPT 24 U/L (12-78); AST/SGOT 11 U/L (15-37); Albumin 3.4 g/dL (3.4-5.0); Alkaline Phosphatase 79 U/L (45-117); BUN Blood Urea Nitrogen 21 mg/dL (7-18); Bicarbonate 24 mmol/L (21-32); Bilirubin Direct < 0.1 mg/dL (0-0.2); Bilirubin Total 0.2 mg/dL (0.2-1.0); Glucose Level 89 mg/dL (74-106); Lipase 246 U/L (73-393); Protein, Total 7.3 g/dL (6.4-8.2); Sodium Level 142 mmol/L (136-145)
--- NOTE | 2021-08-22 21:55 | RAD REPORT ---
EXAM DESCRIPTION: CTAbdomen Pelvis W Contrast - 08/22/2021 9:42 pm CLINICAL HISTORY: ABD PAIN COMPARISON: CT ABD PELVIS W CONTRAST dated 10/30/2011 TECHNIQUE: CT of the abdomen and pelvis was performed. All CT scans are performed using dose optimization technique as appropriate and may include automated exposure control or mA/KV adjustment according to patient size. FINDINGS: Lower chest: No acute abnormality. Liver: Pneumobilia. Biliary: Extrahepatic biliary ductal dilatation is chronic. Stomach: No significant focal abnormality. Duodenum: No significant focal abnormality. Pancreas: No significant abnormality. Spleen: No significant abnormality. Adrenal: No suspicious lesions. Kidney/ureter: No hydronephrosis. No renal calculi. Too small to characterize and/or benign appearing renal lesions are noted. Retroperitoneum: No retroperitoneal adenopathy. Vascular: No aneurysm. Bowel: No significant focal abnormality. Peritoneum: No ascites or free air. Bladder: Grossly unremarkable. Reproductive: No adnexal masses. Bones: No acute fracture. Fusion hardware in the thoracic and lumbar spine. Other: n/a IMPRESSION: No acute intra-abdominal or pelvic finding. Pneumobilia with extrahepatic biliary duct d ilatation that is similar to prior. This could reflect the cholecystectomy state and prior sphinctero chanelle. Correlate with LFTs.
--- NOTE | 2021-08-22 23:28 | ER ---
Nurse's Notes [facility] Name: Jose Rand Age: 41 yrs Sex: Female : 1980 Arrival Date: 08/22/2021 Time: 19:12 Bed 12 Private MD: Diagnosis: Other abdominal pain Presentation: 08/22 19:23 Chief complaint: Patient states: I am having really sharp pains right under my rib cage vc1 but below my breast in the middle, it has been doing it for three days. Coronavirus screen: Vaccine status: Patient reports being unvaccinated. At this time, the client does not indicate any symptoms associated with coronavirus-19. Ebola Screen: No symptoms or risks identified at this time. Initial Sepsis Screen: Does the patient meet any 2 criteria? No. Patient's initial sepsis screen is negative. Does the patient have a suspected source of infection? No. Patient's initial sepsis screen is negative. Risk Assessment: Do you want to hurt yourself or someone else? Patient reports no desire to harm self or others. Onset of symptoms was August 19, 2021. 19:23 Method Of Arrival: Ambulatory vc1 19:23 Acuity: CRISTINA 3 vc1 Triage Assessment: 19:26 General: Appears in no apparent distress. uncomfortable, Behavior is calm, cooperative, vc1 appropriate for age. Pain: Complains of pain in epigastric area and right upper quadrant Pain does not radiate. Pain currently is 10 out of 10 on a pain scale. Quality of pain is described as sharp, Aggravated by eating. GI: Abdomen is round Bowel sounds present X 4 quads. Abdomen is tender to palpation in right upper quadrant and right lower quadrant Reports upper abdominal pain, bloating, diarrhea, epigastric pain. 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 Flu vaccine is not up to date. 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 I congratulated her on such a feat. . Screenin:39 Abuse screen: Denies threats or abuse. Denies injuries from another. Nutritional arina screening: No deficits noted. Tuberculosis screening: No symptoms or risk factors identified. Fall Risk None identified. Assessment: 20:39 Reassessment: Patient appears in no apparent distress at this time. Pt reports upper arina rt. quadrant times "a long time", but got progressively worse after ingesting a tuna sandwich today. We attempted to gain IV access, but given the difficulty, the charge nurse is using the doppler, to find access. 21:16 General: CT called to notify them that she was medicated and labs were drawn, and a arina green top at bedside. . 21:24 General: CT is here to take the pt for her exam. . arina 21:28 General: The pt is going to CT. . arina 21:55 General: The pt has returned from CT and has ambulated to the restroom. She reports arina that her abdominal pain is "minimal". . 22:17 General: The lab was called to see if they could add the troponin to the blood they arina already have. He asked that I send the label, which I did. . Vital Signs: 19:23 BP 155 / 112; Pulse 88; Resp 20; Temp 98.1(TE); Pulse Ox 100% on R/A; Weight 47.63 kg; vc1 Height 5 ft. 2 in. (157.48 cm); Pain 10/10; 21:06 BP 153 / 101; Pulse 93; Resp 16; Temp 98.5; Pulse Ox 98% on R/A; Pain 0/10; arina 21:16 BP 139 / 98; Pulse 85; Resp 16; Pulse Ox 99% on R/A; Pain 0/10; arina 22:09 BP 131 / 94; Pulse 83; Resp 16; Pulse Ox 99% on R/A; Pain 2/10; arina 08/23 00:00 BP 128 / 92; Pulse 82; Resp 16; Temp 98.5; Pulse Ox 98% on R/A; Pain 0/10; arina 08/22 19:23 Body Mass Index 19.20 (47.63 kg, 157.48 cm) vc1 ED Course: 08/22 19:12 Patient arrived in ED. ja2 19:26 Triage completed. vc1 19:26 Arm band placed on right wrist. vc1 20:06 Dario Lopez PA is PHCP. [facility] 20:06 Fidel Feng MD is Attending Physician. jmm 20:39 Kristie Edward, RN is Primary Nurse. arina 20:39 Patient has correct armband on for positive identification. Bed in low position. Call arina light in reach. 20:39 No provider procedures requiring assistance completed. arina 20:45 Initial lab(s) drawn, by me, sent to lab. Inserted saline lock: 22 gauge in left bb antecubital area, using aseptic technique. Blood collected. 20:49 Urine --Ancillary (enter results) Sent. bb 20:50 Basic Metabolic Panel Sent. bb 20:50 CBC with Diff Sent. bb 21:42 CT Abd/Pelvis - IV Contrast Only In Process Unspecified. EDMS 22:18 Troponin High Sensitivity Sent. arina 22:33 Warm blanket given. Verbal reassurance given. arina 22:33 EKG done, by ED staff, reviewed by Dario OVERTON. arina 23:27 Shahbaz Sanchez MD is Referral Physician. [facility] 08/23 00:01 intact, bleeding controlled, No redness/swelling at site. Pressure dressing applied. arina Administered Medications: 08/22 21:00 Drug: morphine 4 mg Route: IVP; Site: left antecubital; arina 21:27 Follow up: Response: Pain is decreased arina 21:00 Drug: Zofran (Ondansetron) 4 mg Route: IVP; Site: left antecubital; arina 21:28 Follow up: Response: Pain is decreased arina 23:50 Drug: morphine 4 mg Route: IVP; Site: left antecubital; arina 08/23 00:00 Follow up: Response: No adverse reaction arina 08/22 23:50 Drug: Zofran (Ondansetron) 4 mg Route: IVP; Site: left antecubital; arina 08/23 00:00 Follow up: Response: No adverse reaction arina Outcome: 08/22 20:42 Condition: stable arina 23:27 Discharge ordered by MD. jessica 08/23 00:01 Discharged to home ambulatory, with family. arina Discharge instructions given to patient. 00:21 Patient left the ED. sm5 Signatures: Dispatcher [employer] EDMS Dario Lopez PA PA jmm Ballard, Brenda, Rianna Gallo RN, Sarah, RN RN 5 Kristie Edward RN RN bo Calcote, Vanessa RN RN vc1
--- NOTE | 2021-08-22 23:28 | EDPHYS ---
Physician Documentation [facility] Name: Jose Rand Age: 41 yrs Sex: Female : 1980 Arrival Date: 08/22/2021 Time: 19:12 Bed 12 Private MD: ED Physician Fidel Feng HPI: 08/22 20:19 This 41 yrs old Female presents to ER via Ambulatory with complaints of Abdominal Pain, jmm Diarrhea. 20:19 The patient presents with abdominal pain. Onset: The symptoms/episode began/occurred jmm gradually, 4 day(s) ago. The symptoms radiate to back. Associated signs and symptoms: Pertinent positives: nausea and vomiting. The symptoms are described as achy. Modifying factors: The symptoms are alleviated by nothing, the symptoms are aggravated by nothing. The patient has experienced similar episodes in the past, several times. 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 Flu vaccine is not up to date. 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 I congratulated her on such a feat. . ROS: 20:19 Constitutional: Negative for fever, chills, and weight loss, Cardiovascular: Negative jmm for chest pain, palpitations, and edema, Respiratory: Negative for shortness of breath, cough, wheezing, and pleuritic chest pain. 20:19 Abdomen/GI: Positive for abdominal pain. 20:19 All other systems are negative. Exam: 20:19 Head/Face: atraumatic. Eyes: EOMI, no conjunctival erythema appreciated ENT: Moist jmm Mucus Membranes Neck: Trachea midline, Supple Chest/axilla: Normal chest wall appearance and motion. Cardiovascular: Regular rate and rhythm. No edema appreciated Respiratory: Normal respirations, no respiratory distress appreciated 20:19 Back: Normal ROM Skin: General appearance color normal MS/ Extremity: Moves all extremities, no obvious deformities appreciated, no edema noted to the lower extremities Neuro: Awake and alert Psych: Behavior is normal, Mood is normal, Patient is cooperative and pleasant 20:19 Constitutional: The patient appears alert, awake, uncomfortable. 20:19 Abdomen/GI: Inspection: distension, Bowel sounds: normal, Palpation: soft, mild abdominal tenderness, in the epigastric area, right upper quadrant and left upper quadrant. Vital Signs: 19:23 BP 155 / 112; Pulse 88; Resp 20; Temp 98.1(TE); Pulse Ox 100% on R/A; Weight 47.63 kg; vc1 Height 5 ft. 2 in. (157.48 cm); Pain 10/10; 21:06 BP 153 / 101; Pulse 93; Resp 16; Temp 98.5; Pulse Ox 98% on R/A; Pain 0/10; arina 21:16 BP 139 / 98; Pulse 85; Resp 16; Pulse Ox 99% on R/A; Pain 0/10; arina 22:09 BP 131 / 94; Pulse 83; Resp 16; Pulse Ox 99% on R/A; Pain 2/10; arina 0211 00:00 BP 128 / 92; Pulse 82; Resp 16; Temp 98.5; Pulse Ox 98% on R/A; Pain 0/10; arina 0210 19:23 Body Mass Index 19.20 (47.63 kg, 157.48 cm) vc1 MDM: 08/22 20:19 Patient medically screened. [facility] 23:25 Data reviewed: vital signs, nurses notes. Counseling: I had a detailed discussion with aracely the patient and/or guardian regarding: the historical points, exam findings, and any diagnostic results supporting the discharge/admit diagnosis, lab results, radiology results, the need for outpatient follow up, to return to the emergency department if symptoms worsen or persist or if there are any questions or concerns that arise at home. 08/22 20:19 Order name: Basic Metabolic Panel; Complete Time: 21:49 [facility] 08/22 20: Order name: CBC with Diff; Complete Time: 21:08 [facility] 08/22 20:19 Order name: Hepatic Function; Complete Time: 21:49 [facility] 08/22 20:19 Order name: Lipase; Complete Time: 21:49 [facility] 08/22 20:21 Order name: Urine Dipstick-Ancillary; Complete Time: 20:23 [facility] 08/22 20:22 Order name: Urine --Ancillary (enter results) 2 08/22 20:20 Order name: CT Abd/Pelvis - IV Contrast Only; Complete Time: 21:58 [facility] 08/22 20:22 Order name: Urine --Ancillary; Complete Time: 20:34 [facility] 08/22 22:10 Order name: Troponin High Sensitivity; Complete Time: 23:23 [facility] 08/22 23:15 Order name: CREATININE WHOLE BLOOD; Complete Time: 23:23 [facility] 08/22 20:19 Order name: IV Saline Lock; Complete Time: 20:49 [facility] 08/22 20:19 Order name: Labs collected and sent; Complete Time: 20:49 [facility] 08/22 20:19 Order name: Urine Dipstick-Ancillary (obtain specimen); Complete Time: 20:21 [facility] 08/22 20:19 Order name: Urine Test (obtain specimen); Complete Time: 20:21 [facility] 08/22 22:10 Order name: EKG - Nurse/Tech; Complete Time: 22:21 [facility] Administered Medications: 21:00 Drug: morphine 4 mg Route: IVP; Site: left antecubital; arina 21:27 Follow up: Response: Pain is decreased arina 21:00 Drug: Zofran (Ondansetron) 4 mg Route: IVP; Site: left antecubital; arina 21:28 Follow up: Response: Pain is decreased arina 23:50 Drug: morphine 4 mg Route: IVP; Site: left antecubital; arina 08/23 00:00 Follow up: Response: No adverse reaction arian 08/22 23:50 Drug: Zofran (Ondansetron) 4 mg Route: IVP; Site: left antecubital; arina 08/23 00:00 Follow up: Response: No adverse reaction arina Disposition: 01:02 Co-signature as Attending Physician, Fidel Feng MD. [email or web address] Disposition Summary: 08/22/21 23:27 Discharge Ordered Location: [facility] Condition: Stable jm Diagnosis - Other abdominal pain jm Followup: [facility] - With: Shahbaz Sanchez MD - When: 2 - 3 days - Reason: Recheck today's complaints, Continuance of care, Re-evaluation by your physician Discharge Instructions: - Discharge Summary Sheet [facility] - Abdominal Pain, Adult [facility] Forms: - Medication Reconciliation Form [facility] - Thank You Letter [facility] - Antibiotic Education [facility] - Prescription Opioid Use [facility] Prescriptions: - ondansetron 4 mg Oral tablet,disintegrating - take 1 tablet by ORAL route every 4-6 hours; 30 tablet; Refills: 0, Product [facility] Selection Permitted - Pepcid 20 mg Oral Tablet - take 1 tablet by ORAL route every 12 hours for 10 days; 20 tablet; Refills: 0, [facility] Product Selection Permitted - dicyclomine 20 mg Oral Tablet - take 1 tablet by ORAL route 3 times per day; 30 tablet; Refills: 0, Product [facility] Selection Permitted Signatures: Dispatcher [employer] EDDario Macedo PA PA jmm Holmes, Maurice, MD MD [email or web address] Kristie Edward, RN RN Bibiana Schwab RN RN vc1
[2021-08-23 01:01] VITALS: TEMP 98.5
[2021-08-23 01:06] VITALS: BP 128/92; O2SAT 98
== END 2021-08-23 00:21 | disposition home or self-care (01) ==
LOC: ER 19:08
DX: R10.9 Unspecified abdominal pain (principal); I25.2 Old myocardial infarction; F17.210 Nicotine dependence, cigarettes, uncomplicated
CPT/HCPCS: 93005; 85025; 80048; 36415; 81025; 82565; 80076; 81003; 84484; 83690; 74177; 96375; 96374; 99284; Q9967; J2405 ×2

== ENCOUNTER → 2023-07-12 | Emergency (ER) | payer SELFPAY ==
[~2023-07-12] MED LIST: HYDROCODONE/APAP 10/325 TAB ONE
--- NOTE | 2023-07-12 15:03 | ER ---
Nurse's Notes [facility] Name: Jose Rand Age: 43 yrs Sex: Female : 1980 Arrival Date: 07/12/2023 Time: 14:19 Bed DIS2 Private MD: Diagnosis: Dental caries, unspecified Presentation: 07/12 14:33 Chief complaint: Right lower molar pain x 2 days, mild right facial swelling today. hb Coronavirus screen: At this time, the client does not indicate any symptoms associated with coronavirus-19. Ebola Screen: No symptoms or risks identified at this time. Initial Sepsis Screen: Does the patient meet any 2 criteria? No. Patient's initial sepsis screen is negative. Does the patient have a suspected source of infection? No. Patient's initial sepsis screen is negative. Risk Assessment: Do you want to hurt yourself or someone else? Patient reports no desire to harm self or others. Onset of symptoms was July 11, 2023. 14:33 Method Of Arrival: Ambulatory hb 14:33 Acuity: CRISTINA 4 hb Triage Assessment: 14:36 General: Appears in no apparent distress. Behavior is calm, cooperative. Pain: Pain hb currently is 8 out of 10 on a pain scale. EENT: Reports right lower molar pain, facial swelling. Neuro: Level of Consciousness is awake, alert, obeys commands, Oriented to person, place, time, situation. Cardiovascular: Patient's skin is warm and dry. Respiratory: Respiratory effort is even, unlabored, Respiratory pattern is regular, symmetrical. GI: No signs and/or symptoms were reported involving the gastrointestinal system. : No signs and/or symptoms were reported regarding the genitourinary system. Derm: Skin is pink, warm \T\ dry. Musculoskeletal: No signs and/or symptoms reported regarding the musculoskeletal system. Historical: - Allergies: 14:34 No Known Drug Allergies; hb - Home Meds: 14:34 Mirtazapine Oral [Active]; Geodon oral [Active]; Buspirone Oral [Active]; hb - PMHx: 14:34 Myocardial infarction; Ulcers; PUD; hb - PSHx: 14:34 2 steel rods in back; hb - Immunization history:: Adult Immunizations up to date. - Social history:: Smoking status: Patient denies any tobacco usage or history of. - Family history:: not pertinent. - Hospitalizations: : No recent hospitalization is reported. Screenin:38 [facility] ED Fall Risk Assessment (Adult) Score/Fall Risk Level 0 - 2 = Low Risk hb Oriented to surroundings, Maintained a safe environment, Educated pt \T\ family on fall prevention, incl call for assistance when getting out of bed. Abuse screen: Denies threats or abuse. Denies injuries from another. Nutritional screening: No deficits noted. Tuberculosis screening: No symptoms or risk factors identified. Assessment: 14:37 General: See triage assessment.. hb Vital Signs: 14:33 BP 137 / 82; Pulse 92; Resp 16; Temp 98.5(O); Pulse Ox 99% on R/A; Weight 53.52 kg; hb Height 5 ft. 2 in. ; Pain 8/10; 14:33 Body Mass Index 21.58 (53.52 kg, 157.48 cm) hb 14:33 Pain Scale: Adult hb ED Course: 14:22 Patient arrived in ED. ts1 14:31 Shreyas Rouse, RN is Primary Nurse. bp 14:33 Henry Vazquez MD is Attending Physician. rn 14:34 Triage completed. hb 14:36 Arm band placed on. hb 14:38 Patient has correct armband on for positive identification. hb 14:38 No provider procedures requiring assistance completed. Patient did not have IV access hb during this emergency room visit. Administered Medications: 14:53 Drug: [place] PO 10 mg-325 mg 1 tabs PO once Route: PO; hb 14:53 Drug: Clindamycin PO 300 mg PO once Route: PO; hb Medication: 14:37 VIS not applicable for this client. hb Outcome: 15:02 Discharge ordered by . rn 15:10 Discharged to home ambulatory, hb 15:10 Condition: stable 15:10 Discharge instructions given to patient, Instructed on discharge instructions, follow up and referral plans. medication usage, Demonstrated understanding of instructions, follow-up care, medications, Prescriptions given X 2, 15:11 Patient left the ED. hb Signatures: Henry Vazquez MD MD rn Baxter, Heather, RN RN hb Peltier, Brian, Rohini Driver RN, PAS PAS ts1
--- NOTE | 2023-07-12 15:03 | EDPHYS ---
Physician Documentation [facility] Name: Jose Rand Age: 43 yrs Sex: Female : 1980 Arrival Date: 07/12/2023 Time: 14:19 Bed DIS2 Private MD: ED Physician Henry Vazquez HPI: 07/12 15:00 This 43 yrs old Female presents to ER via Ambulatory with complaints of Facial Swelling.rn 15:00 The patient presents with pain, swelling. The problem is located in the Right lower rn teeth. Onset: The symptoms/episode began/occurred 1 week(s) ago. Modifying factors: The symptoms are alleviated by nothing, the symptoms are aggravated by food, talking. Severity of symptoms: At their worst the symptoms were moderate, in the emergency department the symptoms are unchanged. The patient has not experienced similar symptoms in the past. Patient reports poor dentition. For the last week has noticed some increased pain to the right lower teeth with swelling of the cheek. No fever. No trouble eating or swallowing. Has seen a dentist and they want to pull multiple teeth with dentures but too expensive at this time.. Historical: - Allergies: 14:34 No Known Drug Allergies; hb - Home Meds: 14:34 Mirtazapine Oral [Active]; Geodon oral [Active]; Buspirone Oral [Active]; hb - PMHx: 14:34 Myocardial infarction; Ulcers; PUD; hb - PSHx: 14:34 2 steel rods in back; hb - Immunization history:: Adult Immunizations up to date. - Social history:: Smoking status: Patient denies any tobacco usage or history of. - Family history:: not pertinent. - Hospitalizations: : No recent hospitalization is reported. ROS: 15:00 Constitutional: Negative for fever, chills, and weight loss, ENT: Positive for dental rn pain and swelling Exam: 15:00 Constitutional: This is a well developed, well nourished patient who is awake, alert, rn and in no acute distress. ENT: Poor general dentition, no evidence of periodontal abscess, mild swelling of buccal space without fluctuance or evidence of abscess. No sign of peritonsillar abscess. No trismus. Vital Signs: 14:33 BP 137 / 82; Pulse 92; Resp 16; Temp 98.5(O); Pulse Ox 99% on R/A; Weight 53.52 kg; hb Height 5 ft. 2 in. ; Pain 8/10; 14:33 Body Mass Index 21.58 (53.52 kg, 157.48 cm) hb 14:33 Pain Scale: Adult hb MDM: 14:33 Patient medically screened. rn 15:00 Differential diagnosis: dental caries, dental abscess, gingivostomatitis. Data rn reviewed: vital signs, nurses notes, and as a result, I will discharge patient. Counseling: I had a detailed discussion with the patient and/or guardian regarding the historical points, exam findings, and any diagnostic results supporting the discharge/admit diagnosis, the need for outpatient follow up, to return to the emergency department if symptoms worsen or persist or if there are any questions or concerns that arise at home. Special discussion: I discussed with the patient/guardian in detail that at this point there is no indication for admission to the hospital. It is understood, however, that if the symptoms persist or worsen the patient needs to return immediately for re-evaluation. Administered Medications: 14:53 Drug: [place] PO 10 mg-325 mg 1 tabs PO once Route: PO; hb 14:53 Drug: Clindamycin PO 300 mg PO once Route: PO; hb Disposition Summary: 07/12/23 15:02 Discharge Ordered Notes: Location: Home rn Problem: new rn Symptoms: have improved rn Condition: Stable rn Diagnosis - Dental caries, unspecified rn Followup: rn - With: Private Physician - When: As needed - Reason: Recheck today's complaints, Re-evaluation by your physician Discharge Instructions: - Dental Caries, Adult rn - Dental Pain rn - Discharge Summary Sheet hb Forms: - Medication Reconciliation Form rn - Thank You Letter rn - 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
[2023-07-12 15:28] VITALS: BP 137/82; TEMP 98.5; O2SAT 99
== END ==
LOC: ER 14:19
DX: K02.9 Dental caries, unspecified (principal)
CPT/HCPCS: 99283

== ENCOUNTER 2024-06-05 22:07 | Emergency (ER) | payer SELFPAY ==
--- OUTSIDE RECORDS SUMMARY | 2024-06-05 22:10 | XMS REPORT | Continuity of Care Document ---
Author Name Unknown Address [address] [place] [address] [facility] thconnect Address [address] [place] [address] Care Team Providers Care Jewelry Making Instructor Name Role Phone PCP, PATIENT DOES NOT HAVE A Primary Care Physic jeff Unavailable MELISSA BRUNNER Attending Clinician Unavailable Melissa Brunner DO Attending Clinician [phone] Calvin HALEY Attending Clinician Unavailable Calvin Johnson Attending Clinician [phone] Loreta Cruz LVN Attending Clinician [phone] ANTIONE CASTANEDA Attending Clinician UnavailRohini Cade Attending Clinician [phone] Antione Castaneda DDS Attending Clinician Calvin HALEY Admitting Clinician Unavailable ANTIONE CASTANEDA Admitting Clinician Unavailab Antione Scanlon DDS Admitting Clinician [phone] Payers Payer Name Policy Type Policy Number Effective Date Expirati on Date Source MEDICAID PENDING PENDING 2021 00:00:00 2021 00:00:00 Problems Condition Name Condition Details Condition Category Status Onset Date Resolution Date Last Treatment Date Treating Clinician Comments Source Oral abscess Oral abscess Disease Active 08-05 00:00: 00 [facility] No known active problems No known active problems Disease [facility] Allergies, Adverse Reactions, Alerts Allergy Name Allergy Type Status Severity Reaction(s) Onset Date Inactive Date Treating Clinician Comments Source NO KNOWN ALLERGIE S Drug Class Active [facility] Social History Social Habit Start Date Stop Date Quantity Comments Source Exposure to SARS-CoV-2 (event) 2021-11-08 00:00:00 2021-11-18 08:51:00 Not sure [facility] Alcohol intake 2021-08-06 00:00:00 2021-08-06 00:00:00 Current non-drinker of alcohol (finding) [facility] Cigarettes smoked current (pack per day) - Reported 2015-07-26 00:00:00 2015-07-26 00:00:00 [facility] Cigarette pack-years 2015-07-26 00:00:00 2015-07-26 00:00:00 [facility] Tobacco use and exposure 2015-07-26 00:00:00 2015-07-26 00:00:00 Never used [facility] Sex Assigned At 1980 00:00:00 1980 00:00:00 [facility] Smoking Status Start Date Stop Date Source Current every day smoker 2015-07-26 00:00:00 [facility] Medications Ordered Medication Name Filled Medication Name Start Date Stop Date Current Medication? Ordering Clinician Indication Dosage Frequency Signature (SIG) Comments Components Source ondansetron 4 mg disintegrat ing tablet 11-18 00:00: 00 Yes [id number] 4mg Take 1 tablet by mouth every 8 (eight) hours as needed for Nausea and Vomiting (N/V). [facility] cephALEXin (KEFLEX) 500 mg capsule 11-18 00:00: 00 11-26 04:59 :00 No [id number] 500mg Take 1 capsule by mouth 3 (three) times daily for 7 days. [facility] clindamycin in 5 % dextrose (CLEOCIN) 600 mg/50 mL IV piggyback RTU 600 mg 08-30 22:30: 00 Yes 600mg 600 mg, IV Piggyback, Q8H ABX, First dose on Thu08/30/21 at 1630, Until Discontinu ed, Administer over 30 Minutes, 50 mL
Reas on for Anti-Infec tive: Documented Infection< br>Documen vicky Infection Site: HEENT
D uration of Therapy: Other (see Comments)< br>Restric vicky use approved by: ED PROVIDER<b r>Indicati on for Clindamyci n use: Dental infection [facility] iopamidol (ISOVUE 370-500 mL) injection 80 mL 08-30 21:45: 00 08-30 20:32 :00 No [id number] 80mL 80 mL, Intravenou s, ONCE, 1 dose, On Thu08/30/21 at 1545, Routine [facility] ketorolac (TORADOL) injection 15 mg 08-30 20:15: 00 08-30 19:35 :00 No 15mg 15 mg, Slow IV Push, ONCE, 1 dose, On Thu08/30/21 at 1415, HARDIK
Fa culty member approving Restricted medication : Calvin HALEY [facility] ibuprofen 600 mg tablet 08-30 00:00: 00 Yes [id number] 600mg Take 1 tablet by mouth every 6 (six) hours as needed for Pain (scale 4-6). [facility] clindamycin 150 mg capsule 08-30 00:00: 00 Yes [id number] 300mg Take 2 capsules by mouth 4 (four) times daily. [facility] lactated ringers IV infusion 500 mL 08-05 15:15: 00 08-06 09:37 :49 No 500mL at 42 mL/hr, 500 mL, IV Infusion, CONTINUOUS , Starting on Thu08/05/21 at 0915, Until Thu08/06/21 at 0337, Routine, PACU [facility] sennosides- docusate sodium (SENOKOT-S) 8.6-50 mg per tablet 1 tablet 08-05 15:00: 00 08-06 09:37 :49 No 1{tbl} 1 tablet, Oral, DAILY, First dose on Thu08/05/21 at 0900, Until Discontinu ed, Routine [facility] chlorhexidi ne (PERIDEX) 0.12 % mouthwash 15 mL 08-05 14:00: 00 08-06 09:37 :49 No 15mL 15 mL, Oral (Swish And Spit Out), BID, First dose on Thu08/05/21 at 0800, Until Discontinu ed, Routine [facility] bupivacaine (preserv free) 0.5% (SENSORCAIN E MPF) 0.5 % (5 mg/mL) injection 08-05 13:55: 00 08-05 15:32 :30 No PRN, Starting on Thu08/05/21 at 0755, Until Thu08/05/21 at 0932, Routine, Intra-op [facility] lidocaine 2% - epinephrine 1:100,000 syringe 08-05 13:38: 00 08-05 15:32 :30 No PRN, Starting on Thu08/05/21 at 0738, Until Thu08/05/21 at 0932, Routine, Intra-op [facility] lactated ringers IV infusion 1,000 mL 08-05 06:30: 00 08-06 09:37 :49 No 1000mL at 42 mL/hr, 1,000 mL, IV Infusion, CONTINUOUS , Starting on Thu08/05/21 at 0030, Until Thu08/06/21 at 0337, Routine [facility] naloxone (NARCAN) injection 0.1 mg 08-05 06:25: 21 08-06 09:37 :49 No .1mg 0.1 mg, Slow IV Push, PRN - SEE INSTRUCTIO NS, Starting on Thu08/05/21 at 0025, Until Thu08/06/21 at 0337, Routine, Sedation/R espiratory Depression , See admin instructio ns. [facility] morpHINE injection 2 mg 08-05 06:25: 21 08-06 09:37 :49 No 2mg 2 mg, Slow IV Push, Q3HPRN, Starting on Thu08/05/21 at 0025, Until Thu08/06/21 at 0337, Routine, Pain (scale 7-10) [facility] HYDROcodone -acetaminop hen (NORCO 5) 5-325 mg tablet 1 tablet 08-05 06:25: 18 08-06 09:37 :49 No 1{tbl} 1 tablet, Oral, Q6HPRN, Starting on Thu08/05/21 at 0025, Until Thu08/06/21 at 0337, Routine, Pain (scale 4-6) [facility] ibuprofen (ADVIL CHILDREN'S) 100 mg/5 mL oral suspension 600 mg 08-05 06:25: 13 08-06 09:37 :49 No 600mg 600 mg, Oral, Q6HPRN, Starting on Thu08/05/21 at 0025, Until Thu08/06/21 at 0337, Routine, Pain (scale 1-3) [facility] ondansetron (ZOFRAN (PF)) injection 4 mg 08-05 06:25: 10 08-06 09:37 :49 No 4mg 4 mg, Slow IV Push, Q4HPRN, Starting on Thu08/05/21 at 0025, Until Thu08/06/21 at 0337, Routine, Nausea and Vomiting (N/V) [facility] nicotine (NICODERM) 7 mg/24 hr patch 1 Patch 08-05 02:15: 00 08-06 09:37 :49 No 1{patch } 1 Patch, Topical, Administer over 24 Hours, Q24H, First dose on Thu08/04/21 at 2015, Until Discontinu ed, Routine [facility] NaCl 0.9% (NS) IV infusion 1,000 mL 08-05 02:00: 00 08-05 06:26 :53 No 1000mL at 100 mL/hr, IV Infusion, CONTINUOUS , Starting on Thu08/04/21 at 2000, Until Thu08/05/21 at 0026, Routine [facility] clindamycin in 5 % dextrose (CLEOCIN) 900 mg/50 mL IV piggyback RTU 900 mg 08-05 02:00: 00 08-05 01:38 :00 No 900mg 900 mg, IV Piggyback, ONCE, 1 dose, On Thu08/04/21 at 2000, Administer over 30 Minutes, 50 mL
Reas on for Anti-Infec tive: Documented Infection< br>Documen vicky Infection Site: HEENT<br&g t;Duration of Therapy: Other (see Comments)< br>Restric vicky use approved by: ADC PROVIDER [facility] naproxen (NAPROSYN) tablet 500 mg 08-05 01:30: 00 08-05 00:35 :00 No 500mg 500 mg, Oral, ONCE, 1 dose, On Thu08/04/21 at 1930, Routine [facility] HYDROcodone -acetaminop hen (NORCO 5) 5-325 mg tablet 1 tablet 08-05 01:30: 00 08-05 00:35 :00 No 1{tbl} 1 tablet, Oral, ONCE, 1 dose, On Thu08/04/21 at 1930, HARDIK [facility] iopamidol (ISOVUE 370-500 mL) injection 100 mL 08-05 00:45: 00 08-04 23:25 :00 No [id number] 100mL 100 mL, Intravenou s, ONCE, 1 dose, On Thu08/04/21 at 1845, Routine [facility] chlorhexidi ne 0.12 % mouthwash 08-05 00:00: 00 Yes [id number] 15mL Swish and spit out 15 mL 2 (two) times daily. [facility] ibuprofen 600 mg tablet 08-05 00:00: 00 Yes [id number] 600mg Take 1 tablet by mouth every 6 (six) hours as needed for Pain (scale 1-3). [facility] HYDROcodone -acetaminop hen 5-325 mg tablet 08-05 00:00: 00 08-13 05:59 :00 No [id number] 1{tbl} Take 1 tablet by mouth every 6 (six) hours as needed for Pain (scale 4-6) or Pain (scale 7-10) for up to 7 days. Indication s: acute pain [facility] amoxicillin -clavulanat e (AUGMENTIN) 875-125 mg per tablet 08-05 00:00: 00 08-13 05:59 :00 No [id number] 1{tbl} Take 1 tablet by mouth 2 (two) times daily for 7 days. [facility] clindamycin in 5 % dextrose (CLEOCIN) 600 mg/50 mL IV piggyback RTU 600 mg 2019-07 12:45: 00 07-08 12:10 :00 No 600mg 600 mg, IV Piggyback, ONCE, 1 dose, 07/08/20 at 0645, 50 mL
Reas on for Anti-Infec tive: Empiric Therapy for Suspected Infection< br>Empiric Therapy Site: Skin / Soft tissue
Duration of therapy: 72 hours
R estricted use approved by: ADC PROVIDER [facility] NaCl 0.9% (NS) bolus infusion 500 mL 2019-07 12:30: 00 07-08 12:20 :00 No 500mL at 999 mL/hr, 500 mL, IV Piggyback, ONCE, 1 dose, 07/08/20 at 0630, STAT [facility] clindamycin 150 mg capsule 2019-07 00:00: 00 07-16 05:59 :00 No [id number] 300mg Take 2 capsules by mouth 4 (four) times daily for 7 days. [facility] traMADOL 50 mg tablet 11-29 00:00: 00 Yes 50mg Take 1 tablet by mouth every 6 (six) hours as needed for Pain (scale 7-10). [facility] ondansetron (ZOFRAN ODT) 4 mg disintegrat ing tablet 11-29 00:00: 00 11-18 00:00 :00 No 4mg Take 1 tablet by mouth every 8 (eight) hours as needed for Nausea and Vomiting (N/V). [facility] HYDROcodone -acetaminop hen (NORCO 5) 5-325 mg tablet 2015-0 1-14 00:00: 00 08-05 00:00 :00 No 1{tbl} Take 1-2 Tabs by mouth every 4 (four) hours as needed for Pain unrelieved by non-narcot ic analgesics . [facility] Vital Signs Vital Name Observation Time Observation Value Comments S ource Systolic blood pressure 2021-11-18 13:52:00 153 mm[Hg] [facility] Diastolic blood pressure 2021-11-18 13:52:00 110 mm[Hg] [facility] Heart rate 2021-11-18 13:52:00 94 /min [facility] Body temperature 2021-11-18 13:52:00 36.61 Bharati [facility] Respiratory rate 2021-11-18 13:52:00 18 /min [facility] Body height 2021-11-18 13:52:00 157.5 cm [facility] Body weight 2021-11-18 13:52:00 53.071 kg [facility] BMI 2021-11-18 13:52:00 21.40 kg/m2 [facility] Oxygen saturation in Arterial blood by Pulse oximetry 2021-11-18 13:52:00 100 /min [facility] Systolic blood pressure 2021-08-30 18:51:00 156 mm[Hg] [facility] Diastolic blood pressure 2021-08-30 18:51:00 123 mm[Hg] [facility] Heart rate 2021-08-30 18:51:00 101 /min [facility] Body temperature 2021-08-30 18:51:00 35.89 Bharati [facility] Respiratory rate 2021-08-30 18:51:00 20 /min [facility] Oxygen saturation in Arterial blood by Pulse oximetry 2021-08-30 18:51:00 100 /min [facility] Systolic blood pressure 2021-08-05 21:25:00 118 mm[Hg] [facility] Diastolic blood pressure 2021-08-05 21:25:00 72 mm[Hg] [facility] Heart rate 2021-08-05 21:25:00 93 /min [facility] Body temperature 2021-08-05 21:25:00 36.11 Bharati [facility] Oxygen saturation in Arterial blood by Pulse oximetry 2021-08-05 21:25:00 98 /min [facility] Respiratory rate 2021-08-05 15:11:00 11 /min [facility] Body height 2021-08-05 05:31:00 157.5 cm [facility] Body weight 2021-08-05 05:31:00 45.36 kg [facility] BMI 2021-08-05 05:31:00 18.29 kg/m2 [facility] Systolic blood pressure 2021-08-05 14:30:00 135 mm[Hg] [facility] Diastolic blood pressure 2021-08-05 14:30:00 107 mm[Hg] [facility] Heart rate 2021-08-05 14:30:00 103 /min [facility] Respiratory rate 2021-08-05 14:30:00 16 /min [facility] Oxygen saturation in Arterial blood by Pulse oximetry 2021-08-05 14:30:00 100 /min [facility] Body temperature 2021-08-05 14:05:00 36.17 Bharati [facility] Body height 2021-08-05 05:31:00 157.5 cm [facility] Body weight 2021-08-05 05:31:00 45.36 kg [facility] BMI 2021-08-05 05:31:00 18.29 kg/m2 [facility] Systolic blood pressure 2020-07-08 12:00:00 161 mm[Hg] [facility] Diastolic blood pressure 2020-07-08 12:00:00 103 mm[Hg] [facility] Heart rate 2020-07-08 12:00:00 105 /min [facility] Respiratory rate 2020-07-08 12:00:00 22 /min [facility] Oxygen saturation in Arterial blood by Pulse oximetry 2020-07-08 11:30:00 98 /min [place] [facility] Body temperature 2020-07-08 10:11:30 36.78 Bharati [facility] Body height 2020-07-08 10:10:00 157.5 cm [facility] Body weight 2020-07-08 10:10:00 44.453 kg [facility] BMI 2020-07-08 10:10:00 17.92 kg/m2 [facility] Procedures Procedure Date / Time Performed Performing Clinician Source [facility] 2021-11-18 14:35:[facility] 2021-11-18 14:02:00 Musa Brunner [facility] CONSENT/REFUSAL FOR DIAGNOSIS AND TREATMENT 2021-11-18 13:45:19 Doctor Unassigned, [place] [facility] MAXILLOFACIAL/MANDIBLE W CONTRAST 2021-08-30 20:42:13 Calvin Haley [facility] COMP. METABOLIC PANEL ([id number]) 2021-08-30 19:15:00 Calvin Haley [facility] CBC WITH DIFF 2021-08-30 19:15:00 Calvin Haley [facility] CONSENT/REFUSAL FOR DIAGNOSIS AND TREATMENT 2021-08-30 18:47:14 Doctor Unassigned, [place] [facility] ASPIRATE OR ABSCESS CULTURE(AEROBIC/ANAEROBIC ) 2021-08-05 13:47:00 Antione Castaneda [facility] AFB CULTURE 2021-08-05 13:47:00 [facility] ABSCESS [facility]ULT[facility](AEROBIC/ANAEROBIC ) 2021-08-05 13:47:00 Antione Castaneda [facility] INCISION AND DRAINAGE ORAL CAVITY 2021-08-05 13:14:00 Antione Castaneda [facility] TOOTH EXTRACTION 2021-08-05 13:14:00 Antione Castaneda [facility] PROTHROMBIN TIME / INR 2021-08-05 10:17:00 Wendi Corral [facility] ACTIVATED PARTIAL THRMPLAS JO-ANN 2021-08-05 10:17:00 Kaushal Corral [facility] PROTHROMBIN TIME / INR 2021-08-05 10:17:00 Wendi Corral [facility] ACTIVATED PARTIAL THRMPLAS JO-ANN 2021-08-05 10:17:00 Kaushal Corral [facility] XR ORTHOPANTOGRAM TEETH 2021-08-05 07:25:00 Melany Corral [facility] XR ORTHOPANTOGRAM TEETH 2021-08-05 07:25:00 Melany Corral [facility] COMP. METABOLIC PANEL ([id number]) 2021-08-05 01:00:00 Rohini Caal [facility] CBC WITH DIFF 2021-08-05 01:00:00 [facility] COMP. METABOLIC PANEL ([id number]) 2021-08-05 01:00:00 Rohini Caal [facility] CBC WITH DIFF 2021-08-05 01:00:00 Rohini Caal [facility] LAB ONLY COVID INTERPRETATION 2021-08-05 00:41:00 Rohini Caal [facility] COVID-19 (ID NOW RAPID TESTING) 2021-08-05 00:41:00 Rohini Caal [facility] LAB ONLY COVID INTERPRETATION 2021-08-05 00:41:00 Rohini Caal [facility] COVID-19 (ID NOW RAPID TESTING) 2021-08-05 00:41:[address] [facility] CT MAXILLOFACIAL/MANDIBLE W CONTRAST 2021-08-04 23:32:08 Rohini Caal [facility] CT MAXILLOFACIAL/MANDIBLE W CONTRAST 2021-08-04 23:32:08 Rohini Caal [facility] NOTICE OF PRIVACY PRACTICES 2021-08-04 18:44:27 Doctor Unassigned, [place] [facility] NOTICE OF PRIVACY PRACTICES 2021-08-04 18:44:27 Doctor Unassigned, [place] [facility] CONSENT/REFUSAL FOR DIAGNOSIS AND TREATMENT 2021-08-04 18:44:14 Doctor Unassigned, [place] [facility] CONSENT/REFUSAL FOR DIAGNOSIS AND TREATMENT 2021-08-04 18:44:14 Doctor Unassigned, [place] [facility] HOSPITAL ADMISSION 2021-08-04 06:01:00 Doctor Un assigned, [place] [facility] COMP. METABOLIC PANEL ([id number]) 2020-07-08 10:36:00 Melissa Brunner [facility] CBC WITH DIFF 2020-07-08 10:36:00 Melissa Brunner [facility] Encounters Start Date/Time End Date/Time Encounter Type Admission Type Attending Clinicians Care Facility Care Department Encounter ID Source 2021-11-18 08:53:00 2021-11-18 10:37:00 Emergency X MELISSA BRUNNER [facility] ERT [id number] [facility] 2021-11-18 08:53:00 2021-11-18 10:37:00 Emergency Melissa Brunner [facility] [id number] 350.1.13.10 [id number] [id number] [facility] 2021-08-30 12:53:00 2021-08-30 16:16:00 Emergency X SUDHA Calvin [facility] ERT [id number] [facility] 2021-08-30 12:53:00 2021-08-30 16:16:00 Emergency SudhaCalvin Carey [facility] [id number] 350.1.13.10 4.2.7.2.686 [id number] [facility] 2021-08-06 00:00:00 2021-08-06 00:00:00 Transition of Care Loreta Crzu [id number] 350.1.13.10 4.2.7.2.686 [id number] [facility] 2021-08-04 12:52:00 2021-08-05 18:40:00 Inpatient X ANTIONE CASTANEDA [facility] CASIE [id number] [facility] 2021-08-04 12:52:00 2021-08-05 18:40:00 [facility] 1.2.840.114 350.1.13.10 4.2.7.2.686 [id number] [facility] 2021-08-05 07:15:00 2021-08-05 08:36:00 [facility] 1.2.840.114 350.1.13.10 4.2.7.2.686 [id number] [facility] 2020-07-08 04:13:00 2020-07-08 06:21:[address] [facility] 1.2.840.114 350.1.13.10 4.2.7.2.686 [id number] [facility] 2020-07-08 04:05:00 2020-07-08 04:05:00 Emergency X [facility] E[facility] [id number] [facility] Results Test Description Test Time Test Comments Results Result Co mments Source [facility][id number][facility]2021-[facility]-30 19:44:04* Test Item Value Reference Range Interpretation Comme nts NA (test code = 5038228170) 138 mmol/L 135-145 K (test code = 8152746687) 4.7 mmol/L 3.5-5.0 CL (test code = 6457707040) 105 mmol/L 98-108 CO2 TOTAL (test code = 5026372593) 26 mmol/L 23-31 AGAP (test code = 6534890340) 2-16 BUN (test code = 7264682990) 15 mg/dL 7-23 GLUCOSE (test code = 9964804165) 86 mg/dL 70-110 CREATININE (test code = 1157442597) 0.44 mg/dL 0.50-1.04 L TOTAL BILI (test code = 4033176228) 0.6 mg/dL 0.1-1.1 CALCIUM (test code = 4602277813) 9.3 mg/dL 8.6-10.6 T PROTEIN (test code = 2585560940) 8.5 g/dL 6.3-8.2 H ALBUMIN (test code = 2212200021) 4.9 g/dL 3.5-5.0 ALK PHOS (test code = 8828171925) 104 U/L 34-122 ALTv (test code = 1742-6) 19 U/L 5-35 AST(SGOT) (test code = 8005134785) 33 U/L 13-40 eGFR (test code = 4133527040) mL/min/1.73m2 GERALDO (test code = GERALDO) Association of [...] or abnormalities in imaging tests). Lab Interpretation (test code = 75188-3) Abnormal [facility] WITH [id number] 19:23:45* Test Item Value Reference Range Interpretation Comme nts WBC (test code = 6690-2) See_Comment [Automated messa ge] The system which generated this result transmitted reference range: 4.30 - 11.10 10*3/?L. The reference range was not used to interpret this result as normal/abnormal. RBC (test code = 789-8) See_Comment [Automated messa ge] The system which generated this result transmitted reference range: 3.93 - 5.25 10*6/?L. The reference range was not used to interpret this result as normal/abnormal. HGB (test code = 718-7) 14.5 g/dL 11.6-15.0 HCT (test code = 4544-3) 44.2 % 35.7-45.2 MCV (test code = 787-2) 89.3 fL 80.6-95.5 MCH (test code = 785-6) 29.3 pg 25.9-32.8 MCHC (test code = 786-4) 32.8 g/dL 31.6-35.1 RDW-SD (test code = 25613-8) 48.0 fL 39.0-49.9 RDW-CV (test code = 788-0) 14.7 % 12.0-15.5 PLT (test code = 777-3) See_Comment [Automated Teez[employer]mobia ge] The system which generated this result transmitted reference range: 166 - 358 10*3/?L. The reference range was not used to interpret this result as normal/abnormal. MPV (test code = 51703-3) 9.7 fL 9.5-12.9 NRBC/100 WBC (test code = 3649936020) See_Comment [Automated [employer] ssage] The system which generated this result transmitted reference range: 0.0 - 10.0 /100 WBCs. The reference range was not used to interpret this result as normal/abnormal. NRBC x10^3 (test code = 6255029031) <0.01 See_Comment [Automated messa ge] The system which generated this result transmitted reference range: 10*3/?L. The reference range was not used to interpret this result as normal/abnormal. GRAN MAT (NEUT) % (test code = 770-8) 64.2 % IMM GRAN % (test code = 4462012241) 0.40 % LYMPH % (test code = 736-9) 24.0 % MONO % (test code = 5905-5) 9.2 % EOS % (test code = 713-8) 1.6 % BASO % (test code = 706-2) 0.6 % GRAN MAT x10^3(ANC) (test code = 4296671060) 6.95 10*3/uL 1.88-7.09 IMM GRAN x10^3 (test code = 1192092086) 0.04 10*3/uL 0.00-0.06 LYMPH x10^3 (test code = 731-0) 2.60 10*3/uL 1.32-3.29 MONO x10^3 (test code = 742-7) 1.00 10*3/uL 0.33-0.92 H EOS x10^3 (test code = 711-2) 0.17 10*3/uL 0.03-0.39 BASO x10^3 (test code = 704-7) 0.07 10*3/uL 0.01-0.07 Lab Interpretation (test code = 72461-8) [facility]normal [facility]:36:53* Test Item Value Reference Range Interpretation Comme [facility] APTT Patient (test code = 3173-2) See_Comment [Automated [employer] [facility]] The system which generated this result transmitted reference range: 26 - 36 Seconds. The reference range was not used to interpret this result as normal/abnormal. Lab Interpretation (test code = 24894-8) Normal [facility] / [id number] 10:36:53* Test Item Value Reference Range Interpretation Comme [facility] PROTIME PATIENT (test code = 5964-2) See_Comment [Automated [employer] [facility]] The system which generated this result transmitted reference range: 10.1 - 12.6 Seconds. The reference range was not used to interpret this result as normal/abnormal. INR (test code = 6301-6) Normal INR <1.1; Warfarin Therapeutic range 2.0 to 3.0 or 2.5 to 3.5, depending upon the indications. Lab Interpretation (test code = 72836-6) [facility]* Test Item Value Reference Range Interpretation Comme [facility] APTT Patient (test code = 3173-2) See_Comment [Automated messa ge] The system which generated this result transmitted reference range: 26 - 36 Seconds. The reference range was not used to interpret this result as normal/abnormal. Lab Interpretation (test code = 84181-2) Normal [facility] / [id number] 10:36:53* Test Item Value Reference Range Interpretation Comme [facility] PROTIME PATIENT (test code = 5964-2) See_Comment [Automated messa ge] The system which generated this result transmitted reference range: 10.1 - 12.6 Seconds. The reference range was not used to interpret this result as normal/abnormal. INR (test code = 6301-6) Normal INR <1.1; Warfarin Therapeutic range 2.0 to 3.0 or 2.5 to 3.5, depending upon the indications. Lab Interpretation (test code = 01219-2) Normal [facility] [id number] 01:37:50* Test Item Value Reference Range Interpretation Comme [facility] WBC (test code = 6690-2) See_Comment H [Automated message] The system which generated this result transmitted reference range: 4.30 - 11.10 10*3/?L. The reference range was not used to interpret this result as normal/abnormal. RBC (test code = 789-8) See_Comment [Automated message] The system which generated this result transmitted reference range: 3.93 - 5.25 10*6/?L. The reference range was not used to interpret this result as normal/abnormal. HGB (test code = 718-7) 12.9 g/dL 11.6-15.0 HCT (test code = 4544-3) 38.5 % 35.7-45.2 MCV (test code = 787-2) 86.3 fL 80.6-95.5 MCH (test code = 785-6) 28.9 pg 25.9-32.8 MCHC (test code = 786-4) 33.5 g/dL 31.6-35.1 RDW-SD (test code = 52155-2) 41.1 fL 39.0-49.9 RDW-CV (test code = 788-0) 13.1 % 12.0-15.5 PLT (test code = 777-3) See_Comment [Automated message] The system which generated this result transmitted reference range: 166 - 358 10*3/?L. The reference range was not used to interpret this result as normal/abnormal. MPV (test code = 46233-3) 9.7 fL 9.5-12.9 NRBC/100 WBC (test code = 2153189680) See_Comment [Automated message] The system which generated this result transmitted reference range: 0.0 - 10.0 /100 WBCs. The reference range was not used to interpret this result as normal/abnormal. NRBC x10^3 (test code = 2580927274) <0.01 See_Comment [Automated message] The system which generated this result transmitted reference range: 10*3/?L. The reference range was not used to interpret this result as normal/abnormal. GRAN MAT (NEUT) % (test code = 770-8) 80.0 % IMM GRAN % (test code = 7136730101) 0.60 % LYMPH % (test code = 736-9) 10.6 % MONO % (test code = 5905-5) 7.6 % EOS % (test code = 713-8) 0.6 % BASO % (test code = 706-2) 0.6 % GRAN MAT x10^3(ANC) (test code = 0481521587) 16.21 10*3/uL 1.88-7.09 H IMM GRAN x10^3 (test code = 0077831296) 0.13 10*3/uL 0.00-0.06 H LYMPH x10^3 (test code = 731-0) 2.16 10*3/uL 1.32-3.29 MONO x10^3 (test code = 742-7) 1.54 10*3/uL 0.33-0.92 H EOS x10^3 (test code = 711-2) 0.13 10*3/uL 0.03-0.39 BASO x10^3 (test code = 704-7) 0.12 10*3/uL 0.01-0.07 H PLT ESTIMATE (test code = 9317-9) Normal Normal GIANT PLATELETS (test code = 5908-9) Present See_Comment A [Automated message] The system which generated this result transmitted reference range: (none). The reference range was not used to interpret this result as normal/abnormal. Lab Interpretation (test code = 26982-2) Abnormal [facility] WITH [id number] 01:37:50* Test Item Value Reference Range Interpretation Comme nts WBC (test code = 6690-2) See_Comment H [Automated message] The system which generated this result transmitted reference range: 4.30 - 11.10 10*3/?L. The reference range was not used to interpret this result as normal/abnormal. RBC (test code = 789-8) See_Comment [Automated message] The system which generated this result transmitted reference range: 3.93 - 5.25 10*6/?L. The reference range was not used to interpret this result as normal/abnormal. HGB (test code = 718-7) 12.9 g/dL 11.6-15.0 HCT (test code = 4544-3) 38.5 % 35.7-45.2 MCV (test code = 787-2) 86.3 fL 80.6-95.5 MCH (test code = 785-6) 28.9 pg 25.9-32.8 MCHC (test code = 786-4) 33.5 g/dL 31.6-35.1 RDW-SD (test code = 02207-5) 41.1 fL 39.0-49.9 RDW-CV (test code = 788-0) 13.1 % 12.0-15.5 PLT (test code = 777-3) See_Comment [Automated message] The system which generated this result transmitted reference range: 166 - 358 10*3/?L. The reference range was not used to interpret this result as normal/abnormal. MPV (test code = 19574-8) 9.7 fL 9.5-12.9 NRBC/100 WBC (test code = 2434299321) See_Comment [Automated message] The system which generated this result transmitted reference range: 0.0 - 10.0 /100 WBCs. The reference range was not used to interpret this result as normal/abnormal. NRBC x10^3 (test code = 5043078998) <0.01 See_Comment [Automated message] The system which generated this result transmitted reference range: 10*3/?L. The reference range was not used to interpret this result as normal/abnormal. GRAN MAT (NEUT) % (test code = 770-8) 80.0 % IMM GRAN % (test code = 7016955813) 0.60 % LYMPH % (test code = 736-9) 10.6 % MONO % (test code = 5905-5) 7.6 % EOS % (test code = 713-8) 0.6 % BASO % (test code = 706-2) 0.6 % GRAN MAT x10^3(ANC) (test code = 4892531337) 16.21 10*3/uL 1.88-7.09 H IMM GRAN x10^3 (test code = 5846247835) 0.13 10*3/uL 0.00-0.06 H LYMPH x10^3 (test code = 731-0) 2.16 10*3/uL 1.32-3.29 MONO x10^3 (test code = 742-7) 1.54 10*3/uL 0.33-0.92 H EOS x10^3 (test code = 711-2) 0.13 10*3/uL 0.03-0.39 BASO x10^3 (test code = 704-7) 0.12 10*3/uL 0.01-0.07 H PLT ESTIMATE (test code = 9317-9) Normal Normal GIANT PLATELETS (test code = 5908-9) Present See_Comment A [Automated message] The system which generated this result transmitted reference range: (none). The reference range was not used to interpret this result as normal/abnormal. Lab Interpretation (test code = 59895-7) [facility][id number][facility] 01:23:23* Test Item Value Reference Range Interpretation Comme nts NA (test code = 2388314316) 131 mmol/L 135-145 L K (test code = 0547371718) 3.8 mmol/L 3.5-5.0 CL (test code = 8368111246) 103 mmol/L 98-108 CO2 TOTAL (test code = 0219893505) 23 mmol/L 23-31 AGAP (test code = 9503651150) 2-16 BUN (test code = 7104358527) 15 mg/dL 7-23 GLUCOSE (test code = 3649449026) 109 mg/dL 70-110 CREATININE (test code = 2927855825) 0.46 mg/dL 0.50-1.04 L TOTAL BILI (test code = 6272569908) 0.4 mg/dL 0.1-1.1 CALCIUM (test code = 1478186931) 8.3 mg/dL 8.6-10.6 L T PROTEIN (test code = 1868412707) 7.7 g/dL 6.3-8.2 ALBUMIN (test code = 3521067584) 4.2 g/dL 3.5-5.0 ALK PHOS (test code = 4219313545) 89 U/L 34-122 ALTv (test code = 1742-6) 15 U/L 5-35 AST(SGOT) (test code = 6056233655) 32 U/L 13-40 eGFR (test code = 8921041864) mL/min/1.73m2 GERALDO (test code = GERALDO) Association of [...] or abnormalities in imaging tests). Lab Interpretation (test code = 44370-2) Abnormal [facility]. METABOLIC PANEL ([id number])2021-08-05 01:23:23* Test Item Value Reference Range Interpretation Comme nts NA (test code = 6765220444) 131 mmol/L 135-145 L K (test code = 6297012934) 3.8 mmol/L 3.5-5.0 CL (test code = 8650208917) 103 mmol/L 98-108 CO2 TOTAL (test code = 1009221499) 23 mmol/L 23-31 AGAP (test code = 3821929988) 2-16 BUN (test code = 7739612210) 15 mg/dL 7-23 GLUCOSE (test code = 6539541787) 109 mg/dL 70-110 CREATININE (test code = 4853436493) 0.46 mg/dL 0.50-1.04 L TOTAL BILI (test code = 9284675532) 0.4 mg/dL 0.1-1.1 CALCIUM (test code = 4058122771) 8.3 mg/dL 8.6-10.6 L T PROTEIN (test code = 2766651790) 7.7 g/dL 6.3-8.2 ALBUMIN (test code = 7143079200) 4.2 g/dL 3.5-5.0 ALK PHOS (test code = 3507484883) 89 U/L 34-122 ALTv (test code = 1742-6) 15 U/L 5-35 AST(SGOT) (test code = 6686154455) 32 U/L 13-40 eGFR (test code = 1626378392) mL/min/1.73m2 GERALDO (test code = GERALDO) Association of [...] or abnormalities in imaging tests). Lab Interpretation (test code = 14479-7) Abnormal [facility] WITH [id number] 11:23:00* Test Item Value Reference Range Interpretation Comme nts WBC (test code = 6690-2) See_Comment H [Automated message] The system which generated this result transmitted reference range: 4.30 - 11.10 10*3/?L. The reference range was not used to interpret this result as normal/abnormal. RBC (test code = 789-8) See_Comment L [Automated message] The system which generated this result transmitted reference range: 3.93 - 5.25 10*6/?L. The reference range was not used to interpret this result as normal/abnormal. HGB (test code = 718-7) 11.9 g/dL 11.6-15 HCT (test code = 4544-3) 35.4 % 35.7-45.2 L MCV (test code = 787-2) 90.3 fL 80.6-95.5 MCH (test code = 785-6) 30.4 pg 25.9-32.8 MCHC (test code = 786-4) 33.6 g/dL 31.6-35.1 RDW-SD (test code = 89217-2) 44.1 fL 39-49.9 RDW-CV (test code = 788-0) 13.2 % 12-15.5 PLT (test code = 777-3) See_Comment H [Automated message] The system which generated this result transmitted reference range: 166 - 358 10*3/?L. The reference range was not used to interpret this result as normal/abnormal. MPV (test code = 32486-2) 9.8 fL 9.5-12.9 NRBC/100 WBC (test code = 3990866911) See_Comment [Automated message] The system which generated this result transmitted reference range: 0.0 - 10.0 /100 WBCs. The reference range was not used to interpret this result as normal/abnormal. NRBC x10^3 (test code = 7931782064) <0.01 See_Comment [Automated message] The system which generated this result transmitted reference range: 10*3/?L. The reference range was not used to interpret this result as normal/abnormal. GRAN MAT (NEUT) % (test code = 770-8) 83.5 % IMM GRAN % (test code = 6425588075) 0.40 % LYMPH % (test code = 736-9) 8.6 % MONO % (test code = 5905-5) 6.5 % EOS % (test code = 713-8) 0.5 % BASO % (test code = 706-2) 0.5 % GRAN MAT x10^3(ANC) (test code = 9319300438) 14.26 10*3/uL 1.88-7.09 H IMM GRAN x10^3 (test code = 0302044563) 0.06 10*3/uL 0-0.06 LYMPH x10^3 (test code = 731-0) 1.47 10*3/uL 1.32-3.29 MONO x10^3 (test code = 742-7) 1.11 10*3/uL 0.33-0.92 H EOS x10^3 (test code = 711-2) 0.09 10*3/uL 0.03-0.39 BASO x10^3 (test code = 704-7) 0.09 10*3/uL 0.01-0.07 H Lab Interpretation (test code = 75691-2) [facility][id number][facility] 11:10:00* Test Item Value Reference Range Interpretation Comme nts NA (test code = 8874938821) 137 mmol/L 135-145 K (test code = 9103662433) 3.5 mmol/L 3.5-5 CL (test code = 1494855647) 103 mmol/L 98-108 CO2 TOTAL (test code = 0329658115) 25 mmol/L 23-31 AGAP (test code = 2795816748) 2-16 BUN (test code = 3389295331) 18 mg/dL 7-23 GLUCOSE (test code = 1926089707) 95 mg/dL 70-110 CREATININE (test code = 7473613188) 0.52 mg/dL 0.5-1.04 TOTAL BILI (test code = 6748200965) 0.6 mg/dL 0.1-1.1 CALCIUM (test code = 4996489801) 9.3 mg/dL 8.6-10.6 T PROTEIN (test code = 9021344509) 7.6 g/dL 6.3-8.2 ALBUMIN (test code = 3111805071) 4.2 g/dL 3.5-5 ALK PHOS (test code = 7832264811) 77 U/L 34-122 ALTv (test code = 1742-6) 13 U/L 5-35 AST(SGOT) (test code = 8629469436) 27 U/L 13-40 eGFR Calculation (Non-) (test code = 1116657677) mL/min/1.73m2 eGFR Calculation () (test code = 1445259886) mL/min/1.73m2 GERALDO (test code = GERALDO) Association of [...] or urine or abnormalities in imaging tests). [facility]"
[2024-06-05] MEDS ORDERED: KETOROLAC 30 MG/ML INJ ONE (22:21)
[2024-06-05] MEDS ORDERED: NA CHLORIDE 0.9% 1,000 ML ONE (22:21)
[2024-06-05 22:27] LABS: Absolute Basophils 0.1 K/uL (0-0.5); Absolute Eosinophils 0.1 K/uL (0-0.5); Absolute Lymphocytes (CBC) 1.9 K/uL (0.7-4.9); Absolute Monocytes 0.9 K/uL (0.1-1.3); Absolute Neutrophil 9.6 K/uL (1.8-8.0); Basophils % 0.7 % (0-1.3); Eosinophils % 0.9 % (0-4.4); Hematocrit 41.4 % (36.0-45.0); Hemoglobin 13.9 g/dL (12.0-15.0); Lymphocytes % 14.9 % (15.3-44.8); MCH 30.5 pg (27.0-35.0); MCHC 33.5 g/dL (32.0-36.0); MPV 7.9 fL (7.6-11.3); Monocytes % 7.5 % (3.3-12.3); Nucleated Red Blood Cells % 0.1 % (0-0); Platelets 319 thou/uL (152-406); RBC Red Blood Cell Count 4.55 M/uL (3.86-4.86); Red Cell Distribution Width 14.8 % (12.1-15.2)
[2024-06-05 22:39] LABS: Anion Gap 6.5 mEq/L (5.0-15.0); Potassium 3.5 mEq/L (3.5-5.1)
[2024-06-05] MEDS ORDERED: SMZ./TMP. 800/160 MG TABLET ONE (23:40)
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
--- NOTE | 2024-06-06 05:31 | RAD REPORT ---
EXAM DESCRIPTION: Hand Left 3 View CLINICAL HISTORY: PAIN TECHNIQUE: Three views of the left hand are submitted. COMPARISON: None available for comparison FINDINGS: Bones: No acute fracture or dislocation. Joints: Joint spaces are unremarkable. Soft tissues: No radiopaque foreign bodies. IMPRESSION: No acute fracture or dislocation of the left hand. Electronically signed by: Jaya Giang MD 06/05/2024 11:22 PM [facility] Due to temporary technical issues with the PACS/[employer] reporting system, reports are being leona d by the in-house radiologist without review as a courtesy to ensure prompt reporting the interpreting radiologist is fully responsible for the content of the report. Transcribed Date/Time: 06/06/2024 5:31 AM
[2024-06-06 05:43] VITALS: TEMP 98.6; O2SAT 100
[2024-06-06 05:47] VITALS: BP 154/112
== END 2024-06-06 00:06 | disposition home or self-care (01) ==
LOC: ER 22:07
DX: L03.114 Cellulitis of left upper limb (principal); F17.210 Nicotine dependence, cigarettes, uncomplicated; F12.90 Cannabis use, unspecified, uncomplicated; I25.2 Old myocardial infarction; I10 Essential (primary) hypertension; F15.90 Other stimulant use, unspecified, uncomplicated; Z88.1 Allergy status to other antibiotic agents
CPT/HCPCS: 36415; 80048; 85025; 96361; 96374; 99285; J7030